=== PATIENT | male | born 1930 | race Caucasian/White ===

== ENCOUNTER 2017-01-21 05:17 | Day surgery (SDC) | payer OTHER ==
[2017-01-14 14:23] LABS: HEMATOCRIT 38.2 % (42.0-52.0); HEMOGLOBIN 12.9 g/dL (14.0-18.0); MCH 28.2 PG (27-31); MCHC 33.8 g/dL (33-37); MCV 83.4 FL (81-99); MPV 9.3 FL (7.4-10.4); RBC 4.58 XMIL (4.7-6.1)
[2017-01-14 14:38] LABS: ALBUMIN 4.5 g/dL (3.5-5.0); CALCIUM 9.6 mg/dL (8.8-10.2); POTASSIUM 4.8 mmol/L (3.5-5.1); TOTAL BILIRUBIN 0.36 mg/dL (0.20-1.00); TOTAL PROTEIN 7.7 g/dL (6.3-8.3)
--- NOTE | 2017-01-14 15:37 | EKG Report ---
Test Performed on : 01/14/2017 2:11:08 PM Test Reason : PAT Blood Pressure : / mmHG Vent. Rate : 083 BPM Atrial Rate : 083 BPM P-R Int : 290 ms QRS Dur : 100 ms QT Int : 392 ms P-R-T Axes : 006 006 003 degrees QTc Int : 460 ms Sinus rhythm. with 1st degree AV block. Voltage criteria for left ventricular hypertrophy Inferior infarct , age undetermined Abnormal ECG No previous ECGs available Confirmed by Ifeoma FERGUSON, Javan Hogan ([id number]) on 01/14/2017 5:24:54 PM
[2017-01-21] MEDS ORDERED: LR 1,000 ML ONE ×3 (05:28→09:32)
[2017-01-21] MEDS ORDERED: KEFZOL 1 GM/D5W 50 ML ONE (05:30)
[2017-01-21] MEDS ORDERED: GLUCAGON ONE (06:43)
[2017-01-21] MEDS ORDERED: MARCAINE 0.25% PF/EPI 1:200,000 ONE (06:43)
[2017-01-21] MEDS ORDERED: SODIUM CHLORIDE 0.9% ONE (06:44)
[2017-01-21] MEDS ORDERED: DIPRIVAN 1% ONE (08:32)
[2017-01-21] MEDS ORDERED: FENTANYL ONE (08:32)
[2017-01-21] MEDS ORDERED: BUPRENEX IV PRN (08:48)
[2017-01-21] MEDS ORDERED: NORCO-7.5 PO PRN (08:48)
[2017-01-21] MEDS ORDERED: ZOFRAN IV PRN (08:48)
[2017-01-21] MEDS ORDERED: PRILOSEC PO SCH (09:00)
[2017-01-21] MEDS ORDERED: DYAZIDE PO SCH (09:00)
[2017-01-21] MEDS ORDERED: CASODEX PO SCH (09:00)
[2017-01-21 09:10] LABS: HEMATOCRIT 36.8 % (42.0-52.0); HEMOGLOBIN 12.3 g/dL (14.0-18.0)
--- NOTE | 2017-01-21 09:22 | Diag Imaging Result Document ---
PROCEDURE NAME: OPERATIVE CHOLANGIOGRAM - 01/21/2017 INTRAOPERATIVE CHOLANGIOGRAM N: COMPARISON: None available. FINDINGS: A single spot fluoroscopic image of the opacified common bile duct was performed intraoperatively by Dr. Bossman Gee. The common bile duct appears to be grossly normal in course and caliber. No discrete stricture or filling defect is identified. There is normal passage of contrast into small bowel. IMPRESSION: As above. Please correlate with live fluoroscopic imaging.
[2017-01-21] MEDS ORDERED: NORCO-7.5 ONE (09:28)
[2017-01-21] MEDS ORDERED: SODIUM CHLORIDE 0.9% 10 ML ONE (09:31)
[2017-01-21] MEDS ORDERED: NEOSTIGMINE ONE (09:31)
[2017-01-21] MEDS ORDERED: ZOFRAN ONE (09:32)
[2017-01-21] MEDS ORDERED: NORCURON ONE (09:32)
[2017-01-21] MEDS ORDERED: QUELICIN (DOSE) ONE (09:32)
[2017-01-21] MEDS ORDERED: EPHEDRINE ONE (09:32)
[2017-01-21] MEDS ORDERED: ROBINUL ONE (09:32)
[2017-01-21] MEDS ORDERED: XYLOCAINE-MPF 2% ONE (09:32)
[2017-01-21] MEDS ORDERED: STERILE WATER INJ. ONE (09:32)
--- NOTE | 2017-01-21 11:05 | OPERATIVE NOTE ---
PROCEDURE DATE: 01/21/2017 PREOPERATIVE DIAGNOSIS: Chronic calculous cholecystitis. POSTOPERATIVE DIAGNOSIS: Chronic calculous cholecystitis. PROCEDURE PERFORMED: Laparoscopic cholecystectomy with operative cholangiogram. SURGEON: Dr. Bossman Gee. SKIDDER DRIVER: Gabriel Gore MD. ANESTHESIA: General. ESTIMATED BLOOD LOSS: 25 mL. COMPLICATIONS: None apparent. SPECIMENS: Gallbladder. FINDINGS: The gallbladder was chronically inflamed with sludge and small stones inside. The cholangiogram revealed normal proximal hepatic ducts and distal common bile duct. There was flow of contrast into the duodenum. No filling defects or stenoses were appreciated. TECHNIQUE: He was brought to the operating room and placed supine on the table. General anesthesia was induced. He was prepped and draped in the usual sterile fashion. Quarter percent Marcaine with epinephrine was used to anesthetize our skin incisions. An 11 mm incision was made above the umbilicus. The fascia was exposed and incised sharply. Entry into the peritoneal cavity was obtained under direct vision with the Optiview device. Pneumoperitoneum was established. The camera was inserted. There was no evidence of any injury to underlying structures. He was placed in reverse Trendelenburg and left rotation. Three 5 mm incision and ports were placed in the epigastric and right upper quadrant under direct vision per usual routine. The gallbladder was grasped by me with an Allis clamp and lifted up superiorly. The dome of the gallbladder tore easily. Some bile, and small sludge and stones spilled. I irrigated these and suctioned these out. I switched to a bulldog clamp to close this rent in the dome of the gallbladder. We then were able to retract the gallbladder up superiorly in a cephalad direction. Dr. Gore was present and helpful in retracting the gallbladder, identifying the critical view, and assisting with the closing of the skin and the fascia at the umbilicus at the end. I began dissecting out the triangle of [place] with the [place] forceps, the blunt tip of the suction device, and using a hook cautery to incise fibroareolar tissue. The critical view was obtained. There were only 2 structures entering the gallbladder, the cystic duct and cystic artery, and the gallbladder-liver junction was seen. The artery was clipped proximally and distally, and incised in between with scissors. The duct was clipped distally. A proximal ductotomy was made with scissors. A 14-gauge Angiocath was passed through the right upper quadrant. The Taut cholangiogram catheter was passed through this, into the cystic duct. It was held in place with a clip. The cholangiogram was performed with the findings as noted above. The clip, catheter, and Angiocath were then removed. Two clips were placed on the proximal cystic duct and it was divided with scissors distal to these two. The gallbladder was then removed from the liver bed using hook cautery as well as scissors and cautery. The upper back wall of the gallbladder was densely adherent to the liver. I did end up leaving a small area of the back wall of the gallbladder. I did not feel it was worth teasing this off of the liver capsule and producing more bleeding. The gallbladder was placed in an EndoCatch bag. I irrigated with saline. There were some bleeding areas on the edge of the gallbladder fossa on the liver. These were controlled with cautery. We irrigated some more until I was satisfied that the bleeding had stopped. I suctioned out the old blood, irrigant, and bile. I did not see any retained stones. I then brought the gallbladder and bag out through the umbilical port site. We desufflated the abdomen and removed our ports. The umbilical fascia was closed with a [id number] 0 Vicryl. The skin was closed with running 4-0 subcuticular Monocryl and Steri-Strips. There were no apparent complications. He was awakened in stable condition and transferred to the recovery room.
[2017-01-21 12:20] LABS: HEMATOCRIT 37.1 % (42.0-52.0); HEMOGLOBIN 12.3 g/dL (14.0-18.0)
[2017-01-21 12:30] VITALS: BP 145/80
== END 2017-01-21 12:49 | disposition home or self-care (01) ==
LOC: OPS 05:17
PROVIDERS: ATTEND Surgery
DX: K80.10 Calculus of gallbladder with chronic cholecystitis without obstruction (principal); Z87.891 Personal history of nicotine dependence; E11.9 Type 2 diabetes mellitus without complications; M19.90 Unspecified osteoarthritis, unspecified site; E78.00 Pure hypercholesterolemia, unspecified; Z85.46 Personal history of malignant neoplasm of prostate
CPT/HCPCS: 74300; 80053; 82948; 85014; 85018; 85027; 88304; 93005; 93010; C1751; J0330; J0690; J1610; J2405; J3010; J7120; Q9966; J2710

== ENCOUNTER 2018-11-26 15:05 | Inpatient (IN) ==
--- NOTE | 2018-11-26 16:22 | Diag Imaging Result Doc PS360 ---
CT HEAD/C-SPINE W/O CONTRAST - 11/26/2018 INDICATION: Fall, syncope COMPARISON: None FINDINGS: There is mild diffuse cerebral atrophy. There is moderate diffuse periventricular white matter chronic microvascular disease. No intracranial mass or hemorrhage. The skull is intact. The sinuses are clear. Cervical spine: There is severe diffuse abnormal sclerosis throughout the cervical spine. This is compatible with metastatic bony disease. There is advanced multilevel degenerative disc disease with bridging osteophytes. No fracture or subluxation. No significant central canal stenosis. IMPRESSION: No acute injury. This exam was performed using automated exposure control, adjustment of mA or kV according to patient size, and/or use of iterative reconstruction technique Electronically signed by Real Rm 11/26/2018 4:19 PM
[2018-11-26 17:26] LABS: BASO# 0.01 X1000 (0.0-0.2); BASO% 0.1 % (0.0-0.8); EOS# 0.03 X1000 (0.0-0.7); EOS% 0.3 % (0.0-10.0); HEMOGLOBIN 10.4 g/dL (14.0-18.0); IMM GRAN# 0.04 X1000 (0.0-0.04); IMM GRAN% 0.3 % (0.0-0.5); LYMPH# 1.13 X1000 (1.2-3.4); LYMPH% 9.5 % (20.5-51.1); MCHC 30.6 g/dL (33-37); MCV 75.2 FL (81-99); MONO# 1.06 X1000 (0.11-0.59); MONO% 8.9 % (1.7-9.3); MPV 8.9 FL (7.4-10.4); NEUT# 9.58 X1000 (1.4-6.5); NEUT% 80.9 % (42.2-75.2); PLT 450 X1000 (130-400); RBC 4.52 XMIL (4.7-6.1); RDW 15.8 % (11.5-14.5); WBC 11.85 X1000 (4.8-10.8)
[2018-11-26 17:47] LABS: AGAP 12; ALB/GLOB RATIO 1.2; ALBUMIN 3.8 g/dL (3.5-5.0); ALKALINE PHOSPHATASE 107 U/L (32-122); BUN 17 mg/dL (8-22); CALCIUM 8.3 mg/dL (8.8-10.2); CHLORIDE 94 mmol/L (98-107); COSMO 267; ESTIMATED GFR > 60; GLUCOSE 149 mg/dL (70-104); GOT 14 U/L (10-34); GPT 6 U/L (10-44); POTASSIUM 4.1 mmol/L (3.5-5.1); SODIUM 131 mmol/L (136-145); TCO2 25 mmol/L (25-35); TOTAL BILIRUBIN 0.36 mg/dL (0.20-1.00)
[2018-11-26] MEDS ORDERED: NS 1,000 ML IV ONE (18:20)
[2018-11-26 20:54] LABS: URINE SOURCE CLEAN CATCH
[2018-11-26 21:03] LABS: BILIRUBIN URINE NEGATIVE (NEGATIVE); BLOOD URINE NEGATIVE (NEGATIVE); CLARITY CLEAR (CLEAR); COLOR YELLOW; GLUCOSE URINE NEGATIVE (NEGATIVE); KETONE URINE NEGATIVE (NEGATIVE); LEUKOCYTES URINE NEGATIVE (NEGATIVE); NITRITE URINE NEGATIVE (NEGATIVE); PH URINE 6.5; PROTEIN URINE TRACE mg/dL (NEGATIVE); UROBILINOGEN URINE 0.2 EU/dL (0.2-1.0)
[2018-11-26 21:04] LABS: URINE BACTERIA NEGATIVE /HFP; URINE CAST NONE SEEN /LPF; URINE CRYSTAL NONE SEEN /HPF; URINE EPITHELIAL CELLS <10 /HPF (<10); URINE RBC <10 /HPF (<10); URINE WBC <10 /HPF (<10); URINE YEAST NONE SEEN /HPF
[2018-11-26] MEDS ORDERED: TYLENOL PO PRN (21:44)
--- NOTE | 2018-11-26 23:07 | PROVIDER DOCUMENTATION ---
This chart was entered by Juanita Cuba Scribe, acting as scribe for Emmy Shaw MD. HPI-Head Injury - General Chief Complaint: Fall Stated Complaint: FALL-HIT HEAD Time Seen by Provider: 11/26/18 15:10 Source: patient, family (daughter) Allergies/Adverse Reactions: Patient Allergies Allergy/AdvReac Type Severity Reaction Status Date / Time No Known Allergies Allergy Verified 01/14/17 13:53 Home Medications: Home Medication List Medication Instructions Recorded Confirmed Last Taken Type Bicalutamide 50 mg PO DAILY 01/14/17 01/21/17 01/21/17 03:00 History Metformin [Glucophage] 500 mg PO BID CC 01/14/17 01/21/17 01/20/17 16:00 History Triamterene/Hydrochlorothiazid 1 each PO DAILY 01/14/17 01/21/17 01/20/17 09:00 History [Triamterene-Hctz 37.5-25 mg Cp] Aspirin 81 mg PO DAILY #0 01/21/17 01/21/17 01/14/17 09:00 Rx Hydrocodone/Acetaminophen [[place] 1 each PO Q4H PRN #25 tablet 01/21/17 Unknown Rx 7.5-325 Tablet] Naproxen 500 mg PO BID #0 01/21/17 01/21/17 01/14/17 16:00 Rx Omeprazole 20 mg PO DAILY #0 01/21/17 01/21/17 01/20/17 09:00 Rx - History of Present Illness-Head Injury Nature of Presenting Problem: [id number] presents to the ed via pov with daughter. pt sts was at home on the phone became dizzy and fell hitting his head on left temporal region with abrasion noted. pt sts +loc and witnessed the fall. SAID HE LOST CONSCIOUSNESS FOR 5 MINUTES, NO SHAKING OR LOSS OF URINE, NO CONFUSION AFTERWARD. pt denies any pain at this time and sts he feels good but his home health nurse wanted him to come be checked out. pt sts takes 81mg asa daily and no anticoagulants Head Injury Location: reports: temporal (left) Other injuries associated with incident:: reports: none Quality of Pain: reports: none Severity: reports: mild Onset/Duration: reports: just prior to arrival Timing: reports: improving Method of Injury: reports: fell Any recent trauma/injury?: reports: minor, to head Loss of Consciousness: prolonged (minutes) (5 minutes) Modifying Factors: improves with: nothing Injury Associated Symptoms: reports: denies symptoms Locality of [place]urance: Home Similar Symptoms Previously?: No Recently seen or treated by another doctor?: No Review of Systems - Adult - REVIEW OF SYSTEMS - ADULT Constitutional: denies: chills, fever Eyes: reports: no symptoms reported Ears, Nose, Mouth & Throat: reports: no symptoms reported Cardiovascular: denies: chest pain, palpitations Respiratory: denies: cough, shortness of breath, wheezing Gastrointestinal: denies: abdominal pain, diarrhea, nausea, vomiting Genitourinary: reports: no symptoms reported Musculoskeletal: denies: back pain, neck pain Integumentary: reports: no symptoms reported Neurological: reports: see HPI, dizziness/vertigo, loss of balance, syncope. denies: ataxia, headache/migraines, numbness, paresthesia, seizure, slurred speech, tremors Psychiatric: reports: no symptoms reported Endocrine: reports: no symptoms reported Hematologic/Lymphatic: reports: no symptoms reported Allergic/Immunologic: reports: no symptoms reported All Other Systems: Reviewed and Negative Past History - Adult - PAST MEDICAL HISTORY-ADULT Review of Records: reports: Old Records Reviewed, Nursing Assessment Review, Medications Reviewed, Social history reviewed & non-contributory. 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) Musculoskeletal: reports: denies history Neurological: reports: denies history Endocrine/Immune: reports: denies history Other Conditions: reports: denies history - PRIOR SURGERIES/PROCEDURES Surgical/Procedure History: reports: reviewed, not pertinent - IMMUNIZATION STATUS Childhood Immunizations: See Nurse Assessment Flu Vaccine: See Nurse Assessment - FAMILY HISTORY Family History: reviewed, not pertinent - SOCIAL HISTORY Smoking: denies Substance Use: denies Living Situation: family Physical Exam- Neurological - Physical Exam-Neuro Initial Vital Signs Reviewed: Yes General Appearance: appears well, alert, no apparent distress Eye Exam: bilateral eye: normal inspection, PERRL, EOMI HENMT: normocephalic/atraumatic, moist mucous membranes, TMs normal, pharynx normal, other (no teeth) Head Injury: ecchymosis (with abrasion to left temporal area) Neck: full range of motion, normal inspection Respiratory: chest non-tender, lungs clear, normal breath sounds Cardiovascular: normal peripheral pulses, regular rate, rhythm, systolic murmur Abdominal Exam: normal bowel sounds, non tender, soft Lymphatic: no adenopathy Extremity: normal range of motion, non-tender, no calf tenderness, normal capillary refill, pelvis stable apprentice lineman third step Exam: normal hearing, normal speech, PERRL Motor/Sensory: no motor deficit, no sensory deficit, no pronator drift Neurologic: grossly normal, no motor/sensory deficits Integumentary: normal color, normal turgor, warm/dry, ecchymosis (to left temporal area of head) Psych/Mental Status: normal mood/affect, normal thought content, normal thought process, oriented x 3 - Glascow Coma Scale Best Eye Response: (4) open spontaneously Best Verbal Response: (5) oriented Best Motor Response: (6) obeys commands Total Glascow Score: 15 Progress - PLAN OF CARE/RESULTS Progress/Plan/Lab Results: Vital Signs - 8 hr 11/26/18 15:10 11/26/18 15:24 11/26/18 15:30 Temperature 97.0 F L Pulse Rate 97 H 83 82 Pulse Rate [Sitting] Pulse Rate [Standing] Pulse Rate [Supine] Respiratory Rate 20 19 19 Blood Pressure 115/58 130/73 Blood Pressure [Sitting] Blood Pressure [Standing] Blood Pressure [Supine] O2 Sat by Pulse Oximetry 95 97 97 11/26/18 15:40 11/26/18 16:14 11/26/18 16:20 Temperature Pulse Rate 80 83 84 Pulse Rate [Sitting] Pulse Rate [Standing] Pulse Rate [Supine] Respiratory Rate 16 32 H 27 H Blood Pressure Blood Pressure [Sitting] Blood Pressure [Standing] Blood Pressure [Supine] O2 Sat by Pulse Oximetry 97 92 L 97 11/26/18 16:30 11/26/18 16:40 11/26/18 17:00 Temperature Pulse Rate 87 82 86 Pulse Rate [Sitting] Pulse Rate [Standing] Pulse Rate [Supine] Respiratory Rate 22 23 18 Blood Pressure Blood Pressure [Sitting] Blood Pressure [Standing] Blood Pressure [Supine] O2 Sat by Pulse Oximetry 97 97 98 11/26/18 17:10 11/26/18 17:20 11/26/18 17:30 Temperature Pulse Rate 89 86 87 Pulse Rate [Sitting] Pulse Rate [Standing] Pulse Rate [Supine] Respiratory Rate 19 15 17 Blood Pressure Blood Pressure [Sitting] Blood Pressure [Standing] Blood Pressure [Supine] O2 Sat by Pulse Oximetry 97 97 97 11/26/18 17:40 11/26/18 17:50 11/26/18 18:00 Temperature Pulse Rate 87 81 88 Pulse Rate [Sitting] Pulse Rate [Standing] Pulse Rate [Supine] Respiratory Rate 20 17 17 Blood Pressure Blood Pressure [Sitting] Blood Pressure [Standing] Blood Pressure [Supine] O2 Sat by Pulse Oximetry 98 97 98 11/26/18 18:10 11/26/18 18:12 11/26/18 18:14 Temperature Pulse Rate 87 88 93 H Pulse Rate [Sitting] 90 Pulse Rate [Standing] 91 H Pulse Rate [Supine] 86 Respiratory Rate 19 19 24 Blood Pressure 159/85 127/75 106/51 Blood Pressure [Sitting] 127/75 Blood Pressure [Standing] 106/51 Blood Pressure [Supine] 159/85 O2 Sat by Pulse Oximetry 96 93 L 97 11/26/18 18:20 11/26/18 18:30 11/26/18 18:40 Temperature Pulse Rate 83 84 90 Pulse Rate [Sitting] Pulse Rate [Standing] Pulse Rate [Supine] Respiratory Rate 16 23 15 Blood Pressure Blood Pressure [Sitting] Blood Pressure [Standing] Blood Pressure [Supine] O2 Sat by Pulse Oximetry 99 98 98 11/26/18 18:50 11/26/18 19:00 11/26/18 19:03 Temperature Pulse Rate 83 84 85 Pulse Rate [Sitting] Pulse Rate [Standing] Pulse Rate [Supine] Respiratory Rate 16 14 14 Blood Pressure 166/85 Blood Pressure [Sitting] Blood Pressure [Standing] Blood Pressure [Supine] O2 Sat by Pulse Oximetry 97 99 97 11/26/18 19:10 11/26/18 19:20 11/26/18 19:30 Temperature Pulse Rate 87 89 85 Pulse Rate [Sitting] Pulse Rate [Standing] Pulse Rate [Supine] Respiratory Rate 15 15 15 Blood Pressure Blood Pressure [Sitting] Blood Pressure [Standing] Blood Pressure [Supine] O2 Sat by Pulse Oximetry 98 98 98 11/26/18 19:40 11/26/18 20:03 11/26/18 20:20 Temperature Pulse Rate 92 H 72 89 Pulse Rate [Sitting] Pulse Rate [Standing] Pulse Rate [Supine] Respiratory Rate 20 18 13 Blood Pressure 154/63 Blood Pressure [Sitting] Blood Pressure [Standing] Blood Pressure [Supine] O2 Sat by Pulse Oximetry 99 97 97 11/26/18 20:30 Temperature Pulse Rate 77 Pulse Rate [Sitting] Pulse Rate [Standing] Pulse Rate [Supine] Respiratory Rate 20 Blood Pressure Blood Pressure [Sitting] Blood Pressure [Standing] Blood Pressure [Supine] O2 Sat by Pulse Oximetry 96 Laboratory Results - last 24 hr 11/26/18 11/26/18 11/26/18 16:55 16:55 19:51 WBC 11.85 H RBC 4.52 L Hgb 10.4 L Hct 34.0 L MCV 75.2 L MCH 23.0 L MCHC 30.6 L RDW Std Deviation 15.8 H Plt Count 450 H MPV 8.9 Immature Gran % (Auto) 0.3 Neut % (Auto) 80.9 H Lymph % (Auto) 9.5 L [place] % (Auto) 8.9 Eos % (Auto) 0.3 Baso % (Auto) 0.1 Immature Gran # (Auto) 0.04 Neut # (Auto) 9.58 H Lymph # (Auto) 1.13 L [place] # (Auto) 1.06 H Eos # (Auto) 0.03 Baso # (Auto) 0.01 Sodium 131 L Potassium 4.1 Chloride 94 L Carbon Dioxide 25 Anion Gap 12 BUN 17 Creatinine 1.0 Estimated GFR/1.73 m2 > 60 BUN/Creatinine Ratio 17 Glucose 149 H Calculated Osmolality 267 Calcium 8.3 L Total Bilirubin 0.36 AST 14 ALT 6 L Alkaline Phosphatase 107 Creatine Kinase Troponin T Total Protein 7.0 Albumin 3.8 Globulin 3.2 Albumin/Globulin Ratio 1.2 Urine Source CLEAN CATCH Urine Color YELLOW Urine Clarity CLEAR Urine Turbidity Urine pH 6.5 Ur Specific [place] 1.010 Urine Protein TRACE A Ur Glucose (Stick) Urine Ketones NEGATIVE Ur Ketones (Stick) Urine Blood NEGATIVE Urine Nitrite NEGATIVE Urine Bilirubin NEGATIVE Urine Urobilinogen 0.2 Urobilinogen Dipstick Urine Leukocytes Urine WBC (Auto) Urine RBC (Auto) U Epithel Cells (Auto) Urine Bacteria (Auto) Urine Microscopic RBC <10 Urine WBC NEGATIVE Urine Microscopic WBC <10 Ur Epithelial Cells <10 Urine Crystals NONE SEEN Urine Bacteria NEGATIVE Urine Casts NONE SEEN Urine Yeast NONE SEEN Urine Glucose NEGATIVE 11/26/18 11/26/18 11/26/18 19:57 21:26 21:26 WBC RBC Hgb Hct MCV MCH MCHC RDW Std Deviation Plt Count MPV Immature Gran % (Auto) Neut % (Auto) Lymph % (Auto) [place] % (Auto) Eos % (Auto) Baso % (Auto) Immature Gran # (Auto) Neut # (Auto) Lymph # (Auto) [place] # (Auto) Eos # (Auto) Baso # (Auto) Sodium Potassium Chloride Carbon Dioxide Anion Gap BUN Creatinine Estimated GFR/1.73 m2 BUN/Creatinine Ratio Glucose Calculated Osmolality Calcium Total Bilirubin AST ALT Alkaline Phosphatase Creatine Kinase 177 Troponin T 0.022 Total Protein Albumin Globulin Albumin/Globulin Ratio Urine Source Cancelled Urine Color Cancelled Urine Clarity Urine Turbidity Cancelled Urine pH Cancelled Ur Specific [place] Cancelled Urine Protein Cancelled Ur Glucose (Stick) Cancelled Urine Ketones Ur Ketones (Stick) Cancelled Urine Blood Cancelled Urine Nitrite Cancelled Urine Bilirubin Cancelled Urine Urobilinogen Urobilinogen Dipstick Cancelled Urine Leukocytes Cancelled Urine WBC (Auto) Cancelled Urine RBC (Auto) Cancelled U Epithel Cells (Auto) Cancelled Urine Bacteria (Auto) Cancelled Urine Microscopic RBC Urine WBC Urine Microscopic WBC Ur Epithelial Cells Urine Crystals Urine Bacteria Urine Casts Urine Yeast Urine Glucose Orders Category Date Time Status Admit - [facility] Routine AdmDCTranf 11/26/18 21:44 Active Activity - Strict Bedrest ORDERED Care 11/26/18 21:44 Active Apply Mechanical Device [QM] ORDERED Care 11/26/18 21:44 Active ED: Orthostatic Vital Signs (E as directed Care 11/26/18 15:49 Completed IV Insertion ONCE Care 11/26/18 21:44 Active Intake and Output-Strict ORDERED Care 11/26/18 21:44 Active Notify MD if DIRECTED Care 11/26/18 21:44 Active Nursing- Assist w/ IS as order ORDERED Care 11/26/18 21:44 Active Nursing- Obtain EKG once Care 11/26/18 18:00 Completed Nursing- Obtain EKG once Care 11/26/18 18:01 Inactive Orthostatic Vital Signs Q12-HR ASSESS Care 11/26/18 21:44 Active Vital Signs Order ROUTINE Care 11/26/18 21:44 Active Z-Document. for Tele Applied ORDERED Care 11/26/18 21:44 Active Heart Healthy Diet Diet 11/26/18 21:[address] HEAD/C-SPINE W/O CONTRAST [CT] Stat Exams 11/26/18 15:34 Completed CBC WITH DIFF [HEME] Routine Lab 11/27/18 06:00 Ordered CBC WITH ELECTRONIC DIFF [HEME] Stat Lab 11/26/18 16:55 Completed CK PROFILE [SP CHEM] Q8HR Lab 11/26/18 21:26 Completed CK PROFILE [SP CHEM] Q8HR Lab 11/27/18 05:00 Ordered COMPREHENSIVE METABOLIC PANEL [CHEM] Routine Lab 11/27/18 06:00 Ordered COMPREHENSIVE METABOLIC PANEL [CHEM] Stat Lab 11/26/18 16:55 Completed CORTISOL Routine Lab 11/27/18 06:00 Ordered FERRITIN Routine Lab 11/27/18 06:00 Ordered FOLATE Routine Lab 11/27/18 06:00 Ordered FREE T4 Routine Lab 11/27/18 06:00 Ordered Stool [OCCULT BLOOD SCREENING] [STOOL] Routine Lab 11/26/18 21:44 Uncollected Stool [OCCULT BLOOD SCREENING] [STOOL] Stat Lab 11/26/18 21:44 Uncollected TROPONIN T Q8HR Lab 11/26/18 21:26 Completed TROPONIN T Q8HR Lab 11/27/18 05:00 Ordered TSH Routine Lab 11/27/18 06:00 Ordered UIBC W TOTAL IRON [CHEM] Routine Lab 11/27/18 06:00 Ordered VITAMIN B12 Routine Lab 11/27/18 06:00 Ordered 0.9% Sodium Chloride Inj [Ns] 1,000 ml Med 11/26/18 21:44 Active IV 70 mls/hr 0.9% Sodium Chloride Inj [Ns] 1,000 ml Med 11/26/18 18:20 Discontinued IV 999 mls/hr Acetaminophen [Tylenol] Med 11/26/18 21:44 Active 650 mg PO Q4H PRN PRN Incentive Spirometer Routine Oth 11/26/18 21:44 Active O2 Per Protocol Routine Oth 11/26/18 21:44 Active Telemetry [OM.EQ] Routine Oth 11/26/18 21:44 Active Carotid Ultrasound Routine Ther 11/27/18 07:00 Ordered EKG [EKG] Stat Ther 11/26/18 15:35 Ordered Echo Spec/Color Dop W/O Contra Routine Ther 11/26/18 21:44 Ordered Physical Therapy Eval/Treatment [OM.PT] Routine Ther 11/26/18 21:44 Active Transfer/Admit Order [TRANSFER] Routine Transfer 11/26/18 20:33 Completed Patient care, assessment and plan discussed with the attending physician Dr. Hang Garner and he agree with the plan as documented. Result Diagrams: 11/26/18 16:55 11/26/18 16:55 - REASSESSMENT Reassessment #1 Time Reassessed: 16:41 Status: unchanged - CT/MRI 1 CT Study: Cervical Spine (CT HEAD/C-SPINE W/O CONTRAST - 11/26/2018 INDICATION : Fall, syncope COMPARISON: None FINDINGS: There is mild diffuse cerebral atrophy. There is moderate diffuse periventricular white matter chronic microvascular disease. No intracranial mass or hemorrhage. The skull is intact. The sinuses are clear. Cervical spine: There is severe diffuse abnormal sclerosis throughout the cervical spine. This is compatible with metastatic bony disease. There is advanced multilevel degenerative disc disease with bridging osteophytes. No fracture or subluxation. No significant central canal stenosis. IMPRESSION: No acute injury. This exam was performed using automated exposure control, adjustment of mA or kV according to patient size, and/or use of iterative reconstruction technique Electronically signed by Real Rm 11/26/2018 4:19 PM 11/26/18 1619 Interpreting Physician: Real Rm MD Dictated Date/Time: 11/26/18 1615 cc: Emmy Remy MD; Agus Gonzales MD), Head - CONSULTS/PCP/HOSPITALIST Notification #1 *Consult/PCP/Hospitalist*: Dr. Fermin Time Discussed: 18:51 Consult Disposition: Admit (Accepted.) Departure - Departure Date of Disposition Decision: 11/26/18 Time of Disposition Decision: 18:51 DIAGNOSIS: Syncope Qualifiers: Syncope type: unspecified Qualified Code(s): R55 - Syncope and collapse Anemia Qualifiers: Anemia type: unspecified type Qualified Code(s): D64.9 - Anemia, unspecified Disposition: ADMITTED INPATIENT 09 Certified Medical Emergency: Emergent Condition: Stable - Critical Care Note This patient required my direct & personal management of CC.: No Attestation - Physician/ LAZARA Attestation Patient care was provided by Advanced Practice Provider:: No The physician spent face to face time with patient:: Yes Advanced Practice Provider documentation review:: Supervising physician onsite and consulted in the evaluation and care of this patient. The physician did have a face to face encounter with the patient. This chart was documented by the indicated scribe, (Juanita Cuba Scribe) and accurately reflects the services I performed and decisions made by me, Emmy Shaw MD, as attested by the provider's signature.
[2018-11-27] MEDS: NS 1,000 ML IV SCH ×2 (00:22→14:34)
--- NOTE | 2018-11-27 02:34 | HISTORY AND PHYSICAL ---
PRIMARY CARE PHYSICIAN: Dr. Agus Gonzales. CHIEF COMPLAINT: Syncopal episode. HISTORY OF PRESENT ILLNESS: An 88-year-old white male, with a past medical history significant for metastatic prostate cancer, reflux disease, diabetes, and hyperlipidemia, who presents for evaluation of above-mentioned symptoms. Current history of present illness began approximately 1 to 2 weeks ago. At that time, the patient was noted to have increasing weakness and difficulty with ambulation. The patient's family contacted Dr. Gonzales, and home health was arranged. The patient states he has worked with home health and physical therapy. Approximately 3 to 4 days ago, he developed a significant left upper extremity pain. He noted this pain to be primarily in the left upper arm, as well as the left shoulder. The patient did note having intermittent chest discomfort. The patient states the symptoms lasted approximately 48 hours, resolving last night. This morning, the patient states he awoke feeling dizzy, but reasonably well. The patient states he was carrying on his daily activities, when he received a phone call from the nurse at approximately 1:00. Thereafter, the patient is unsure as to the following events. The patient states that he awoke, having fallen on the ground. He noted pain to his left scalp, as he had struck his head on the floor. The patient's heard him fall, and called for assistance immediately. Neighbors helped him. He was weak, but they helped him to a sitting position. The patient's nurse arrived and assessed his condition. Because of the laceration to his scalp, as well as his profound weakness, further evaluation in the emergency department was recommended. Upon arrival, full evaluation was pursued. CT scan of the head and cervical spine revealed no acute abnormalities. Orthostatic blood pressures demonstrated a significant orthostasis. The patient will be admitted to the hospital for full evaluation and management of syncopal episode, with associated orthostatic hypotension and chest discomfort. Of note, the patient recently has developed increasing shortness of breath and dyspnea on exertion. He denies significant palpitations, lower extremity edema, fevers, chills, nausea, vomiting, or chest discomfort. He notes intermittent reflux disease, transient. PAST MEDICAL HISTORY: 1. Metastatic prostate cancer, with bony involvement. 2. Hyperlipidemia. 3. Osteoarthritis. 4. Reflux disease. 5. Diabetes. CURRENT MEDICATIONS: Unknown. ALLERGIES: The patient answered no known drug allergies. SOCIAL HISTORY: The patient is a retired TV repairman. Denies tobacco, alcohol, or illicit drug use. FAMILY HISTORY: Patient's mother passed at age 68, secondary to complications of breast cancer. Patient's father passed at age 64, secondary to complications of lung cancer. REVIEW OF SYSTEMS: A 12-point review of systems was performed. Pertinent positives and negatives are noted in the history of present illness. PHYSICAL EXAMINATION: VITAL SIGNS: Temperature 97 degrees, heart rate 77, respirations 20, blood pressure is 154/63. GENERAL: Well-nourished, well-developed, in no acute distress. HEENT: Normocephalic, atraumatic. Pupils equal, round, reactive to light. Extraocular muscles intact. Sclerae anicteric. [place] conjunctivae. Oral and nasopharynx clear, without exudate. NECK: Supple. No lymphadenopathy. No thyromegaly. No bruits auscultated. CARDIOVASCULAR: Regular rate and rhythm. No significant rubs or gallops. A 3/6 systolic murmur noted at the apex. PULMONARY: Clear to auscultation bilaterally. ABDOMEN: Soft, nontender, nondistended. Positive bowel sounds. EXTREMITIES: Moves all extremities well. No significant clubbing, cyanosis, or edema. NEUROLOGIC: Cranial nerves 2-12 grossly intact. Motor and sensory grossly intact. PSYCHOLOGIC: Appropriate. LABORATORY DATA: White blood cell count 11.85, hemoglobin 10.4, hematocrit 34.0, platelet count 450,000. Sodium 131, potassium 4.1, chloride 94, bicarb 25, BUN 17, creatinine 1.0, glucose 149. Calcium 8.3. Total bilirubin 0.36, total protein 7.0, albumin 3.8, alkaline phosphatase 107, AST 14, ALT 6. Urinalysis is pending at the time of admission. ASSESSMENT AND PLAN: An 88-year-old white male, with a complicated past medical history as noted, who presents for evaluation of a syncopal episode. As described above, the patient was noted to be significantly orthostatic upon admission. He also has noted intermittent chest discomfort with dyspnea on exertion and profound weakness in the recent weeks. The patient will be admitted to the hospital for full evaluation and management of each of these conditions. 1. Admit to General Medicine. 2. Syncopal episode - Differential diagnosis is quite broad. We will follow patient on telemetry. We will evaluate chest discomfort as described below. We will treat patient's orthostatic hypotension as described below. We will schedule a carotid Doppler and echocardiogram in the morning. We will check a random cortisol in the setting of hyponatremia. We will determine if a cosyntropin stimulation test is appropriate. Depending on findings, we will initiate physical therapy secondary to weakness in the a.m. 3. Orthostatic hypotension - Documented per evaluation in the emergency department. Patient received 1 L of normal saline. We will continue normal saline at 70 mL an hour. We will follow this as well. 4. Chest discomfort - This is atypical, but in the setting of multiple risk factors and a syncopal episode, underlying ischemia will need to be ruled out. We will check serial cardiac enzymes. We will follow patient on telemetry. Further evaluation will be deferred to Dr. Gonzales. 5. Anemia - The patient has a moderate anemia, with a low MCV. Certainly, an iron deficiency could be contributing to his weakness. We will check an anemia panel in the morning. We will Hemoccult all stools. 6. Profound weakness - As described above, this is increased over the course of the last several weeks. Certainly, this may be secondary to multiple medical conditions and his advanced age, but underlying etiologies will need to be evaluated as described. Additionally, we will initiate physical therapy once his clinical condition has stabilized. 7. Hyponatremia - This likely is multifactorial. We will remain aware. At this point, I am unsure as to his home medications, as these may be playing a role as well. 8. Leukocytosis - I do not have a source of infection at present time. We will follow up urinalysis, as this is pending. We will follow this. 9. Metastatic prostate cancer - We will remain aware. 10. Fluids, electrolytes, nutrition - We will monitor electrolytes. Normal saline at 70 mL an hour. Cardiac prudent diet. 11. Prophylaxis. Patient will be placed on SCDs. cc: MD Agus Benitez MD
[2018-11-27 07:47] LABS: HEMOGLOBIN 10.4 g/dL (14.0-18.0); RDW 15.8 % (11.5-14.5)
[2018-11-27 07:54] LABS: BASO# 0.01 X1000 (0.0-0.2); BASO% 0.1 % (0.0-0.8); EOS# 0.05 X1000 (0.0-0.7); EOS% 0.5 % (0.0-10.0); HEMATOCRIT 34.3 % (42.0-52.0); IMM GRAN# 0.05 X1000 (0.0-0.04); IMM GRAN% 0.5 % (0.0-0.5); LYMPH# 1.03 X1000 (1.2-3.4); LYMPH% 9.8 % (20.5-51.1); MCHC 30.3 g/dL (33-37); MCV 75.9 FL (81-99); MONO# 1.07 X1000 (0.11-0.59); MONO% 10.2 % (1.7-9.3); MPV 8.7 FL (7.4-10.4); NEUT# 8.31 X1000 (1.4-6.5); NEUT% 78.9 % (42.2-75.2); PLT 415 X1000 (130-400); RBC 4.52 XMIL (4.7-6.1); WBC 10.52 X1000 (4.8-10.8)
--- NOTE | 2018-11-27 07:56 | EKG Report ---
Test Performed on : 11/26/2018 6:00:59 PM Test Reason : CP Blood Pressure : / mmHG Vent. Rate : 084 BPM Atrial Rate : 084 BPM P-R Int : 272 ms QRS Dur : 098 ms QT Int : 394 ms P-R-T Axes : 052 011 041 degrees QTc Int : 465 ms Sinus rhythm. with 1st degree AV block. Otherwise normal ECG When compared with ECG of 14-JAN-2017 14:11, Criteria for Inferior infarct are no longer present T wave inversion no longer evident in Inferior leads Nonspecific T wave abnormality now evident in Lateral leads Unconfirmed Result
[2018-11-27 08:01] LABS: AGAP 12; ALB/GLOB RATIO 1.1; ALBUMIN 3.4 g/dL (3.5-5.0); ALKALINE PHOSPHATASE 103 U/L (32-122); BUN 15 mg/dL (8-22); CALCIUM 8.1 mg/dL (8.8-10.2); CHLORIDE 100 mmol/L (98-107); COSMO 275; CREATININE 0.9 mg/dL (0.7-1.2); ESTIMATED GFR > 60; GLUCOSE 141 mg/dL (70-104); GOT 16 U/L (10-34); GPT 6 U/L (10-44); IRON SATURATION 7 %; POTASSIUM 4.1 mmol/L (3.5-5.1); SODIUM 136 mmol/L (136-145); TCO2 24 mmol/L (25-35); TIBC 198 ug/dL; TOTAL IRON 14 ug/dL (53-167); TOTAL PROTEIN 6.6 g/dL (6.3-8.3); UNBOUND IRON 184 ug/dL (112-346)
[2018-11-27 08:21] LABS: FREE T4 1.09 ng/dL (0.93-1.70); TSH 1.88 uIUmL (0.27-4.20)
[2018-11-27] MEDS ORDERED: NORCO-5 PO PRN (08:23)
[2018-11-27] MEDS: MIRALAX PO SCH (09:56)
[2018-11-27] MEDS: ZOLOFT PO SCH (09:56)
--- NOTE | 2018-11-27 14:54 | ECHO REPORT ---
ORDER DATE: 11/26/2018 ECHOCARDIOGRAPHIC MEASUREMENTS: 1. Interventricular septum 1.3. 2. Left ventricular posterior wall 1.4. 3. Diastolic diameter 3.7. 4. Left atrium 4.6. 5. Aorta 3.5 mitral valve leaflets are normal. The aortic valve leaflets were trileaflet, calcified. 6. Tricuspid valve was normal. 7. Pulmonic valve was normal. 8. There is mild tricuspid regurgitation. Peak velocity across the tricuspid valve was 2.6 m/sec. 9. There is trace to mild mitral regurgitation. 10. There is diastolic dysfunction. 11. Peak flows to get across the aortic valve less than 2 m/sec. There is no aortic stenosis. There is aortic sclerosis. There is no aortic regurgitation. 12. Normal left ventricular cavity size. Concentric left ventricular hypertrophy. Estimated ejection fraction of 60% to 65%. 13. There is no pericardial effusion or obvious intracardiac mass or thrombus seen. cc: MD Narayan Mendoza MD Russell T. Barr, MD
[2018-11-28] MEDS: NS 1,000 ML IV SCH ×2 (04:00→18:28)
[2018-11-28] MEDS: PRILOSEC PO SCH (06:19)
[2018-11-28] MEDS: MIRALAX PO SCH (08:32)
[2018-11-28] MEDS: ZOLOFT PO SCH (08:33)
--- NOTE | 2018-11-28 13:24 | PROGRESS NOTE ---
DATE: 11/28/2018 SUBJECTIVE: The patient was admitted on 11/26/2018 with a syncopal episode. Evaluation thus far has included CT scan of the head and cervical spine which revealed no evidence of acute injury. Echocardiogram suggested concentric left ventricular hypertrophy with an ejection fraction of 60% to 65%, diastolic dysfunction, and mild valvular heart disease. Telemetry has demonstrated no evidence of arrhythmia. Since hospitalization, the patient has done reasonably well. He has had no further episodes of syncope. Unfortunately, he continues to have significant weakness. Because of his metastatic prostate cancer and his progressive disease, consideration for Hospice evaluation was made yesterday. A consult was made; however, it does not appear this has been completed. This morning, the patient is in bed. The patient's daughter is at bedside. He remained very concerned in regards to his weakness. He has worked with physical therapy but is unable to ambulate without assistance. He denies, fevers, chills, nausea, vomiting, shortness of breath, or chest discomfort. His p.o. intake is marginal. OBJECTIVE: T-max 99.3, heart rate 77 to 104, respirations 16 to 20, blood pressure 134 to 158 over 53 to 79. General: Elderly. No acute distress. Cardiovascular: Regular rate and rhythm. No significant murmurs, rubs or gallops. Pulmonary: Clear to auscultation bilaterally. Abdomen: Soft. Nontender and nondistended. Positive bowel sounds. Extremities: Moves all extremities well. No significant cyanosis, clubbing or edema. Dermatologic: No evidence of rash. DIAGNOSTIC DATA: No laboratory data. ASSESSMENT AND PLAN: 1. Syncopal episode. Differential diagnosis remains quite broad. Echocardiogram demonstrated no evidence of significant abnormalities. CT scan of the head and cervical spine suggested no evidence of acute disease. Telemetry, thus far, has revealed no arrhythmia. At this point, this appears to be orthostatic hypotension related. He continues to have modest orthostasis despite IV fluids. We will continue supportive care for now. 2. Orthostatic hypotension. As above. We will continue IV fluids. The degree has decreased, however, not resolved. We will remain aware. 3. Chest discomfort. The patient has multiple risk factors. He currently is chest pain free. Cardiac enzymes returned negative. This appears to have been orthopedic in etiology secondary to shoulder and cervical spine disease. 4. Anemia. The patient has a stable, moderate anemia with low MCV. Iron studies reveal a deficiency. At this point, in the setting of him not having a bowel movement since hospitalization, we will hold off on iron replacement. We will consider initiating this prior to discharge. 5. Profound weakness. We discussed this in detail. As above, the patient's daughter is at bedside. We discussed the potential for Hospice care. The patient and the patient's daughter wish to attempt rehabilitation and physical therapy. If he is unable to succeed, they would like to consider Hospice at that time. For now, we will continue physical therapy while hospitalized and consider rehabilitation early next week. 6. Hyponatremia. The patient's sodium level has improved since admission. We will continue IV fluids. 7. Metastatic prostate cancer. We will remain aware. 8. Disposition. At this point, the patient continues to require custodial care in a hospital setting. We will plan discharge to rehabilitation versus Hospice once appropriate. cc: MD Agus Benitez MD
[2018-11-29] MEDS: PRILOSEC PO SCH (06:29)
[2018-11-29] MEDS: ZOLOFT PO SCH (08:08)
[2018-11-29] MEDS: MIRALAX PO SCH (08:09)
[2018-11-29] MEDS: NS 1,000 ML IV SCH (08:11)
--- NOTE | 2018-11-29 12:18 | PROGRESS NOTE ---
DATE: 11/29/2018 SUBJECTIVE: As described in note yesterday, a discussion was held with patient and with the patient's daughter. Expectations of his current condition were detailed. Dr. Gonzales had consulted hospice evaluation. However, it does not appear that this has been completed. When discussing the patient's care with a family member, the patient's daughter is concerned with his profound weakness and questions whether some improvement with mobility could be achieved with rehabilitation. It was agreed that consultation for rehabilitation will be pursued early this week. If the patient is unable to achieve adequate response, hospice care will be pursued. Overnight, the patient denies fevers, chills, nausea, vomiting, further syncopal episodes, palpitations, or chest discomfort. The patient remains very weak and unsteady on his feet. OBJECTIVE: Temperature maximum 100 degrees. Heart rate 78 to 87. Respirations 17 to 19. Blood pressure 128 to 143 over 61 to 77. General: Elderly. No acute distress. Cardiovascular: Regular rate and rhythm. No significant murmurs, rubs, or gallops. Pulmonary: Clear to auscultation bilaterally. Abdomen: Soft, nontender, nondistended. Positive bowel sounds. Extremities: Moves all extremities well. No significant clubbing, cyanosis, or edema. Dermatologic: Evaluation reveals no evidence of rash. LABORATORY DATA: None. ASSESSMENT AND PLAN: 1. Syncopal episode. -- Differential diagnosis remains broad. No definitive etiology was identified per echocardiogram, CT scan of the head, and CT scan of the cervical spine. Telemetry, thus far, has revealed no arrhythmia. At this point, working diagnosis is orthostatic hypotension combined with profound weakness. The patient's orthostasis has improved as described below. We will continue supportive care. He has not experienced a repeat episode while hospitalized. 2. Orthostatic hypotension. -- The patient has been treated with IV fluids. His orthostatics per yesterday evening had improved, approaching baseline. As he will be discharged without IV fluids, we will plan to discontinue fluids today. We will follow this. 3. Chest discomfort. -- The patient has multiple risk factors. At this point, this appears to have been musculoskeletal. He is chest pain free at present time. Cardiac enzymes returned negative. 4. Anemia. -- As of last evaluation, the patient had stable microcytic anemia. In the setting of not having a bowel movement since hospitalization, we will hold off on iron replacement. We will defer management to Dr. Gonzales at discharge. 5. Profound weakness. -- As described in the Subjective, the patient, the patient's daughter, and I had a long discussion yesterday. Expectations are for him to improve enough to return home. With this expectation, I feel rehabilitation will be most appropriate. I did discuss the concerns for his underlying medical conditions and his possibility for an inability to achieve improvement. If this proves to be the case, we will plan on transferring to hospice at that time. We will consult Fleet Manager/Dispatch in the a.m. We will continue physical therapy. 6. Hyponatremia. -- This improved with IV fluids. 7. Metastatic prostate cancer. -- We will remain aware. 8. Disposition. -- At this point, the patient continues to require correction care in a hospital setting. We will plan discharge home once appropriate. cc: MD Agus Benitez MD
[2018-11-30] MEDS: PRILOSEC PO SCH (06:03)
[2018-11-30] MEDS ORDERED: SENOKOT PO ONE (08:11)
[2018-11-30] MEDS ORDERED: FLEET ENEMA PR PRN (08:12)
[2018-11-30] MEDS ORDERED: VITAMIN C PO SCH (09:00)
[2018-11-30] MEDS ORDERED: FERGON PO SCH (09:00)
[2018-11-30] MEDS: MIRALAX PO SCH (09:13)
[2018-11-30] MEDS: ZOLOFT PO SCH (09:13)
--- NOTE | 2018-11-30 12:38 | Diag Imaging Result Doc PS360 ---
EXAM: CHEST-PORTABLE 11/30/2018 HISTORY: Rehab placement TECHNIQUE: AP portable at 1231 COMMENT: There is opacification of the lingula and left lower lobe with some apparent pleural fluid. The right lung is clear. The heart size is at the upper limits of normal. There are no previous studies available for comparison. IMPRESSION: Left pleural effusion and lingular and lower lobe atelectasis versus pneumonia. Electronically signed by Champ Rivers 11/30/2018 12:36 PM
[2018-11-30 13:24] VITALS: BP 128/66
--- NOTE | 2018-11-30 15:13 | DISCHARGE SUMMARY ---
ADMISSION DATE: 11/26/2018 DISCHARGE DATE: 11/30/2018 FINAL DIAGNOSES: 1. Syncope. 2. Orthostatic hypotension. 3. Left lingular pneumonia. 4. History of widely metastatic prostate cancer with bony involvement. 5. Type 2 diabetes mellitus, diet controlled. HISTORY OF PRESENT ILLNESS: Mr. Diallo is an 88-year-old gentleman with a past history of multiple medical problems, including metastatic prostate cancer. On the morning of admission he was seen by his home physical therapist and had a fairly vigorous exercise session with his left arm and developed increased pain, which I feel is due to his metastatic prostate cancer. Several hours later, after lunch, he was standing waiting for the bath aide to prepare his bath and was heard to fall and required assistance to sit back up. He did scrape his left scalp on the floor. Neighbors arrived and managed to get him up to a sitting position, but an ambulance was called and he was brought to the emergency room for further evaluation. He denied fever, chills, cough, shortness of breath, or chest discomfort. PHYSICAL EXAMINATION: Revealed he was afebrile with unremarkable vital signs, although he did have some orthostasis noted when attempting to stand. Supine blood pressure was 154/63. General appearance: He was well nourished, in no distress. Cardiac exam: Regular rate and rhythm. 3/6 systolic ejection murmur noted at the apex. His lungs were clear bilaterally. DATABASE: White blood count 11,800, hemoglobin 10.4, hematocrit 34%, which was similar to his baseline. Sodium was 131, BUN 17, creatinine 1.0. Urinalysis was unremarkable. HOSPITAL COURSE: He was admitted with a diagnosis of syncope and placed on monitoring and evaluation advisor. He was given IV fluids for his orthostasis. With intravenous normal saline, his hyponatremia resolved and this was stopped. I discussed hospice care with he and his daughter and they are considering it. They, however, prefer that he go to subacute rehab for attempts at increasing his strength and endurance so that he can remain at home with his . I feel this is certainly reasonable although I think he will be a good hospice candidate fairly soon. His chest x-ray, prior to rehab placement, did suggest a left lingular infiltrate and I have added some doxycycline orally for seven days. I will continue to follow him at [facility]. DISCHARGE MEDICATIONS: 1. Acetaminophen 650 mg q four hours p.r.n. for pain. 2. Ascorbic acid 500 mg daily with ferrous gluconate 240 mg daily. 3. [place] 5 one or two tablets q four hours p.r.n. for pain. 4. Omeprazole 20 mg daily. 5. Doxycycline 100 mg twice a day. cc: Agus Gonzales MD
== END 2018-11-30 16:42 | DRG 312 ==
LOC: ED 15:05 → 3N 21:29
PROVIDERS: ADMIT Internal Medicine; ATTEND Internal Medicine
CPT/HCPCS: 70450; 71010; 71045; 72125; 80053; 81001; 82533; 82550; 82607; 82728; 82746; 82948; 83540; 83550; 84439; 84443; 84484; 85025; 93005; 93306; 93880; 94761; 96360; 96361; 97116; 97162; 97530; 99285; A9270; J7030; XXXXX

== ENCOUNTER 2018-12-25 17:43 | Inpatient (IN) ==
--- NOTE | 2018-12-25 19:11 | Diag Imaging Result Doc PS360 ---
EXAM: CHEST-PORTABLE - 12/25/2018 HISTORY: SOB TECHNIQUE: Portable chest COMPARISON: 11/30/2018 FINDINGS: Inspiration is somewhat shallow. There is left basilar opacity which is decreased compared to prior. This may represent some combination of atelectasis, pleural fluid, and/or infiltrate. The remainder lungs appear grossly clear. There is no large pleural effusion or pneumothorax identified. The heart borders are partially obscured due to the shallow inspiration, heart size is probably upper range of normal. IMPRESSION: Somewhat shallow inspiration. Left basilar opacity which is decreased compared to prior. Electronically signed by Jett Neri 12/25/2018 7:09 PM
[2018-12-25 21:57] LABS: BASO# 0.01 X1000 (0.0-0.2); BASO% 0.1 % (0.0-0.8); EOS# 0.01 X1000 (0.0-0.7); EOS% 0.1 % (0.0-10.0); HEMATOCRIT 35.9 % (42.0-52.0); HEMOGLOBIN 11.2 g/dL (14.0-18.0); IMM GRAN# 0.13 X1000 (0.0-0.04); IMM GRAN% 0.9 % (0.0-0.5); LYMPH# 0.61 X1000 (1.2-3.4); LYMPH% 4.3 % (20.5-51.1); MCHC 31.2 g/dL (33-37); MCV 73.6 FL (81-99); MONO# 1.37 X1000 (0.11-0.59); MONO% 9.8 % (1.7-9.3); MPV 8.6 FL (7.4-10.4); NEUT# 11.91 X1000 (1.4-6.5); NEUT% 84.8 % (42.2-75.2); PLT 523 X1000 (130-400); RBC 4.88 XMIL (4.7-6.1); WBC 14.04 X1000 (4.8-10.8)
[2018-12-25 22:19] LABS: AGAP 12; ALB/GLOB RATIO 1.8; ALBUMIN 4.2 g/dL (3.5-5.0); ALKALINE PHOSPHATASE 164 U/L (32-122); BUN 15 mg/dL (8-22); CALCIUM 8.6 mg/dL (8.8-10.2); CHLORIDE 94 mmol/L (98-107); COSMO 272; CREATININE 0.9 mg/dL (0.7-1.2); ESTIMATED GFR > 60; GLUCOSE 212 mg/dL (70-104); GOT 16 U/L (10-34); GPT 9 U/L (10-44); MAGNESIUM 1.9 mg/dL (1.5-2.7); POTASSIUM 4.9 mmol/L (3.5-5.1); SODIUM 132 mmol/L (136-145); TCO2 26 mmol/L (25-35); TOTAL PROTEIN 6.6 g/dL (6.3-8.3)
[2018-12-25 22:20] LABS: URINE SOURCE CLEAN CATCH
[2018-12-25 22:33] LABS: BILIRUBIN URINE NEGATIVE (NEGATIVE); BLOOD URINE NEGATIVE (NEGATIVE); COLOR YELLOW; GLUCOSE URINE 150 mg/dL (NEGATIVE); KETONE URINE NEGATIVE (NEGATIVE); LEUKOCYTES URINE NEGATIVE (NEGATIVE); NITRITE URINE NEGATIVE (NEGATIVE); PROTEIN URINE 100 mg/dL (NEGATIVE); SP GRAVITY URINE 1.022; TURBIDITY URINE CLEAR (CLEAR); UR EPITHELIAL CELLS <10 /HPF (<10); URINE BACTERIA NEGATIVE /HPF; URINE RBC <10 /HPF (<10); URINE WBC <10 /HPF (<10); UROBILINOGEN URINE NORMAL (NORMAL)
[2018-12-25 22:56] LABS: CK INDEX 0.8 (0.0-2.5); CK-MB 2.47 ng/mL (0.0-5.0)
[2018-12-25] MEDS ORDERED: LASIX IV ONE (23:47)
--- NOTE | 2018-12-26 02:27 | PROVIDER DOCUMENTATION ---
This chart was entered by Mami August Scribe, acting as scribe for Trevon Cortez MD. HPI-General Adult <Umer Paez. - Last Filed: 12/26/18 02:39> - General Source: patient - History of Present Illness -Gen Adult Nature of Presenting Problems: Pt is currently on Hospice care for Prostate cancer, today it was reported that he had some SOB w/ rapid heart rate. He was brought in EMS. Location of Pain/Injury: reports: other (increased HR and SOB) Quality of Pain: reports: none Severity: reports: moderate Onset/Duration: reports: just prior to arrival Timing: reports: improving Context/Activities at Onset: reports: none Modifying Factors: improves with: nothing Associated Symptoms: reports: shortness of breath Similar Symptoms Previously?: No Recently seen or treated by another doctor?: No <Trevon Cortez - Last Filed: 01/01/19 00:51> - General Chief Complaint: Shortness of Breath Stated Complaint: sob Time Seen by Provider: 12/25/18 18:15 Allergies/Adverse Reactions: Patient Allergies Allergy/AdvReac Type Severity Reaction Status Date / Time "cholesterol med" Allergy Unknown Unknown Uncoded 12/26/18 00:04 Home Medications: Home Medication List Medication Instructions Recorded Confirmed Last Taken Type Aspirin 81 mg PO DAILY #0 01/21/17 12/26/18 12/25/18 Rx Cyanocobalamin (Vitamin B-12) 1,000 mcg PO DAILY 11/27/18 12/26/18 12/25/18 History [Vitamin B-12] Omeprazole [Prilosec] 20 mg PO DAILY 11/27/18 12/26/18 12/25/18 History Ascorbic Acid [Vitamin C] 500 mg PO DAILY tablet 11/30/18 12/26/18 12/25/18 Rx Sertraline [Zoloft] 50 mg PO QAM tablet 11/30/18 12/26/18 12/25/18 Rx Ferrous Sulfate [Iron] 27 mg PO DAILY 12/26/18 12/26/18 12/25/18 History Hydrocodone/APAP 5 mg/325 mg 1 - 2 each PO Q4H PRN PRN 12/26/18 12/26/18 History [[place]-5] Lorazepam 0.5 mg PO DAILY PRN PRN 12/26/18 12/26/18 12/25/18 History Prednisone 10 mg PO DAILY 12/26/18 12/26/18 12/25/18 History Review of Systems - Adult - REVIEW OF SYSTEMS - ADULT Constitutional: denies: chills, fever Eyes: reports: no symptoms reported Ears, Nose, Mouth & Throat: reports: no symptoms reported Cardiovascular: reports: no symptoms reported Respiratory: reports: shortness of breath. denies: cough Gastrointestinal: reports: no symptoms reported. denies: abdominal pain, nausea , vomiting Genitourinary: reports: no symptoms reported Musculoskeletal: reports: no symptoms reported Integumentary: reports: no symptoms reported Neurological: denies: dizziness/vertigo, headache/migraines, numbness Psychiatric: reports: no symptoms reported Endocrine: reports: no symptoms reported Hematologic/Lymphatic: reports: no symptoms reported Allergic/Immunologic: reports: no symptoms reported All Other Systems: Reviewed and Negative <Trevon Cortez - Last Filed: 01/01/19 00:51> Past History - Adult - PAST MEDICAL HISTORY-ADULT Review of Records: reports: Old Records Reviewed, Nursing Assessment Review, Medications Reviewed, Social history reviewed & non-contributory. 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) Musculoskeletal: reports: denies history Neurological: reports: denies history Endocrine/Immune: reports: denies history Other Conditions: reports: denies history - PRIOR SURGERIES/PROCEDURES Surgical/Procedure History: reports: reviewed, not pertinent - IMMUNIZATION STATUS Childhood Immunizations: See Nurse Assessment Flu Vaccine: See Nurse Assessment - FAMILY HISTORY Family History: reviewed, not pertinent - SOCIAL HISTORY Smoking: denies, non-smoker Substance Use: none/never Alcohol Use Frequency: never Living Situation: family <Trevon Cortez - Last Filed: 01/01/19 00:51> Physical Exam-General - PHYSICAL EXAM-ADULT Initial Vital Signs Reviewed: Yes - CONSTITUTIONAL General Appearance: appears well, alert, no apparent distress - EYES Eyes: PERRL/EOMI - HEAD, EARS, NOSE, MOUTH & THROAT HENMT: moist mucous membranes, normal ENT inspection, TMs normal, pharynx normal - NECK Neck: non-tender, full range of motion, supple, normal inspection - RESPIRATORY Respiratory: chest non-tender, lungs clear, normal breath sounds - CARDIOVASCULAR Cardiovascular: normal peripheral pulses, no edema, tachycardia - GASTROINTESTINAL (ABDOMEN) Abdominal Exam: normal bowel sounds, non tender, soft - LYMPHATIC Lymphatic: no adenopathy - MUSCULOSKELETAL Back Exam: normal inspection, no CVA tenderness, no vertebral tenderness Extremity: normal range of motion, non-tender, normal gait, normal inspection - SKIN Integumentary: normal color, warm/dry - NEUROLOGIC Neurologic: grossly normal - PSYCHIATRIC Psych/Mental Status: normal mood/affect, normal thought content, normal thought process, oriented x 3 <Trevon Cortez - Last Filed: 01/01/19 00:51> Progress - PLAN OF CARE/RESULTS Progress/Plan/Lab Results: Vital Signs - 8 hr 12/25/18 18:57 12/25/18 20:00 12/25/18 21:31 Temperature Pulse Rate 131 H 131 H 136 H Respiratory Rate 27 H 23 17 Blood Pressure 159/103 150/102 O2 Sat by Pulse Oximetry 96 99 100 12/25/18 21:46 12/25/18 22:15 12/25/18 22:16 Temperature Pulse Rate 132 H 140 H 139 H Respiratory Rate 24 26 H 24 Blood Pressure 121/88 149/105 149/105 O2 Sat by Pulse Oximetry 99 99 98 12/25/18 22:31 12/25/18 22:46 12/25/18 22:55 Temperature Pulse Rate 135 H 140 H 139 H Respiratory Rate 22 24 25 H Blood Pressure 164/103 162/111 133/86 O2 Sat by Pulse Oximetry 98 98 99 12/25/18 23:01 12/25/18 23:15 12/26/18 02:00 Temperature 98.1 F Pulse Rate 131 H 132 H 128 H Respiratory Rate 23 22 31 H Blood Pressure 143/99 132/77 126/83 O2 Sat by Pulse Oximetry 99 98 98 12/25/18 21:53 Influenza Screen - Final Nasopharyngeal Laboratory Results - last 24 hr 12/25/18 12/25/18 12/25/18 21:46 21:46 21:46 WBC 14.04 H RBC 4.88 Hgb 11.2 L Hct 35.9 L MCV 73.6 L MCH 23.0 L MCHC 31.2 L RDW Std Deviation 17.0 H Plt Count 523 H MPV 8.6 Immature Gran % (Auto) 0.9 H Neut % (Auto) 84.8 H Lymph % (Auto) 4.3 L [place] % (Auto) 9.8 H Eos % (Auto) 0.1 Baso % (Auto) 0.1 Immature Gran # (Auto) 0.13 H Neut # (Auto) 11.91 H Lymph # (Auto) 0.61 L [place] # (Auto) 1.37 H Eos # (Auto) 0.01 Baso # (Auto) 0.01 D-Dimer, Quantitative Sodium 132 L Potassium 4.9 Chloride 94 L Carbon Dioxide 26 Anion Gap 12 BUN 15 Creatinine 0.9 Estimated GFR/1.73 m2 > 60 BUN/Creatinine Ratio 17 Glucose 212 H Calculated Osmolality 272 Calcium 8.6 L Magnesium 1.9 Total Bilirubin 0.40 AST 16 ALT 9 L Alkaline Phosphatase 164 H Creatine Kinase 312 H Creatine Kinase Index 0.8 CK-MB (CK-2) 2.47 Troponin T Bsl-G-[id number] Pept Total Protein 6.6 Albumin 4.2 Globulin 2.4 Albumin/Globulin Ratio 1.8 Urine Source Urine Color Urine Turbidity Urine pH Ur Specific [place] Urine Protein Ur Glucose (Stick) Ur Ketones (Stick) Urine Blood Urine Nitrite Urine Bilirubin Urobilinogen Dipstick Urine Leukocytes Urine WBC (Auto) Urine RBC (Auto) U Epithel Cells (Auto) Urine Bacteria (Auto) 12/25/18 12/25/18 12/25/18 21:46 21:46 21:46 WBC RBC Hgb Hct MCV MCH MCHC RDW Std Deviation Plt Count MPV Immature Gran % (Auto) Neut % (Auto) Lymph % (Auto) [place] % (Auto) Eos % (Auto) Baso % (Auto) Immature Gran # (Auto) Neut # (Auto) Lymph # (Auto) [place] # (Auto) Eos # (Auto) Baso # (Auto) D-Dimer, Quantitative 4.17 H Sodium Potassium Chloride Carbon Dioxide Anion Gap BUN Creatinine Estimated GFR/1.73 m2 BUN/Creatinine Ratio Glucose Calculated Osmolality Calcium Magnesium Total Bilirubin AST ALT Alkaline Phosphatase Creatine Kinase Creatine Kinase Index CK-MB (CK-2) Troponin T 0.020 Bkf-S-Rdxczlnumct Pept 2609 H Total Protein Albumin Globulin Albumin/Globulin Ratio Urine Source Urine Color Urine Turbidity Urine pH Ur Specific [place] Urine Protein Ur Glucose (Stick) Ur Ketones (Stick) Urine Blood Urine Nitrite Urine Bilirubin Urobilinogen Dipstick Urine Leukocytes Urine WBC (Auto) Urine RBC (Auto) U Epithel Cells (Auto) Urine Bacteria (Auto) 12/25/18 22:15 WBC RBC Hgb Hct MCV MCH MCHC RDW Std Deviation Plt Count MPV Immature Gran % (Auto) Neut % (Auto) Lymph % (Auto) [place] % (Auto) Eos % (Auto) Baso % (Auto) Immature Gran # (Auto) Neut # (Auto) Lymph # (Auto) [place] # (Auto) Eos # (Auto) Baso # (Auto) D-Dimer, Quantitative Sodium Potassium Chloride Carbon Dioxide Anion Gap BUN Creatinine Estimated GFR/1.73 m2 BUN/Creatinine Ratio Glucose Calculated Osmolality Calcium Magnesium Total Bilirubin AST ALT Alkaline Phosphatase Creatine Kinase Creatine Kinase Index CK-MB (CK-2) Troponin T Rff-S-Beroyygyxsl Pept Total Protein Albumin Globulin Albumin/Globulin Ratio Urine Source CLEAN CATCH Urine Color YELLOW Urine Turbidity CLEAR Urine pH 7.0 Ur Specific [place] 1.022 Urine Protein 100 A Ur Glucose (Stick) 150 A Ur Ketones (Stick) NEGATIVE Urine Blood NEGATIVE Urine Nitrite NEGATIVE Urine Bilirubin NEGATIVE Urobilinogen Dipstick NORMAL Urine Leukocytes NEGATIVE Urine WBC (Auto) <10 Urine RBC (Auto) <10 U Epithel Cells (Auto) <10 Urine Bacteria (Auto) NEGATIVE Orders Category Date Time Status CT ANGIOGRM PULMONARY ARTERIES [CT] Stat Exams 12/25/18 23:55 Taken cxr [CHEST-PORTABLE] [RAD] Stat Exams 12/25/18 18:37 Completed CBC WITH ELECTRONIC DIFF [HEME] Stat Lab 12/25/18 21:46 Completed CK PROFILE [SP CHEM] Stat Lab 12/25/18 21:46 Completed COMPREHENSIVE METABOLIC PANEL [CHEM] Stat Lab 12/25/18 21:46 Completed D-DIMER [COAG] Stat Lab 12/25/18 21:46 Completed INFLUENZA SCREEN A/B Stat Lab 12/25/18 21:53 Completed MAGNESIUM [CHEM] Stat Lab 12/25/18 21:46 Completed PRO B-NATRIURETIC PEPTIDE Stat Lab 12/25/18 21:46 Completed TROPONIN T Stat Lab 12/25/18 21:46 Completed URINALYSIS W/POSS RFLX CULT [URINALYSIS] Stat Lab 12/25/18 22:15 Completed Furosemide [Lasix] Med 12/25/18 23:47 Discontinued 40 mg IV NOW ONE EKG [EKG] Stat Ther 12/25/18 18:38 Ordered EKG [EKG] Stat Ther 12/26/18 02:17 Ordered Result Diagrams: 12/25/18 21:46 12/25/18 21:46 - CT/MRI 1 CT Study: Thorax Impression: Abnormal CT Results: LAE, with interstitial pul edema, pneumonia in lingula and LLL - CONSULTS/PCP/HOSPITALIST Notification #1 *Consult/PCP/Hospitalist*: Bryan Time Discussed: 02:47 Consult Disposition: Will see in ED, Admit <Umer Paez - Last Filed: 12/26/18 02:39> - PLAN OF CARE/RESULTS Progress/Plan/Lab Results: Vital Signs - 8 hr 12/25/18 17:51 Temperature 98.5 F Pulse Rate 129 H Respiratory Rate 20 Blood Pressure 152/105 O2 Sat by Pulse Oximetry 100 Orders Category Date Time Status cxr [CHEST-PORTABLE] [RAD] Stat Exams 12/25/18 18:37 Ordered CBC WITH ELECTRONIC DIFF [HEME] Stat Lab 12/25/18 18:37 Uncollected COMPREHENSIVE METABOLIC PANEL [CHEM] Stat Lab 12/25/18 18:37 Uncollected INFLUENZA SCREEN A/B Stat Lab 12/25/18 18:38 Uncollected MAGNESIUM [CHEM] Stat Lab 12/25/18 18:37 Uncollected URINALYSIS W/POSS RFLX CULT [URINALYSIS] Stat Lab 12/25/18 18:37 Uncollected EKG [EKG] Stat Ther 12/25/18 18:38 Ordered Result Diagrams: 12/30/18 05:00 12/30/18 07:40 - REASSESSMENT Reassessment #1 Time Reassessed: 01:18 Status: other (PENDING CTPA TO BE READ BY RADIOLOGIST.) - EKG 1 Time of EKG reading by physician:: 20:58 EKG Read and Signed by:: Trevon Cortez EKG Interpretation (*Must complete 3 of following elements*): Abnormal (sinus tachycardia, cannot rule out Anterior infarct, age undetermined Abnormal ECG) Rate: 132 Rhythm: sinus tachycardia [place]: normal QRS: normal - CHANGE OF SHIFT REPORT (ED Provider) 1 Report Given and Care Transferred to:: DR. PAEZ Time of Transfer: 02:26 Items Pending: CT/MRI Results, Physician Consult/Arrival, Other (PATIENT CARE) <Trevon Cortez - Last Filed: 01/01/19 00:51> Departure - Departure Date of Disposition Decision: 12/26/18 Time of Disposition Decision: 02:47 Certified Medical Emergency: Emergent - Critical Care Note This patient required my direct & personal management of CC.: No <Umer Paez - Last Filed: 12/26/18 02:39> <Trevon Cortez - Last Filed: 01/01/19 00:51> - Departure DIAGNOSIS: Lingular pneumonia, New onset atrial fibrillation Left lower lobe pneumonia Qualifiers: Pneumonia type: due to unspecified organism Qualified Code(s): J18.1 - Lobar pneumonia, unspecified organism Congestive heart failure Qualifiers: Heart failure type: unspecified Heart failure chronicity: acute Qualified Code( s): I50.9 - Heart failure, unspecified Disposition: ADMITTED INPATIENT 09 Condition: Fair Attestation - Physician/ LAZARA Attestation Patient care was provided by Advanced Practice Provider:: No The physician spent face to face time with patient:: Yes Advanced Practice Provider documentation review:: Supervising physician onsite and consulted in the evaluation and care of this patient. The physician did have a face to face encounter with the patient. <Trevon Cortez - Last Filed: 01/01/19 00:51> This chart was documented by the indicated scribe, (Mami August Scribe) and accurately reflects the services I performed and decisions made by me, Trevon Cortez MD, as attested by the provider's signature.
[2018-12-26] MEDS ORDERED: ROCEPHIN 1 GM in NS 50 ML IV ONE (02:40)
[2018-12-26] MEDS ORDERED: ZITHROMAX 500 MG/NS 500 MG/250 ML IVPB IV ONE (02:40)
[2018-12-26] MEDS ORDERED: CARDIZEM IV ONE (02:42)
[2018-12-26] MEDS ORDERED: CARDIZEM 100 MG in NS 80 ML IV SCH (03:15)
--- NOTE | 2018-12-26 04:36 | HISTORY AND PHYSICAL ---
PRIMARY CARE PHYSICIAN: Dr. Gonzales. CHIEF COMPLAINT: Shortness of breath. HISTORY OF PRESENTING ILLNESS: An 88-year-old male with a history of metastatic prostate cancer to bone and GERD, who had presented to the emergency department with 1-week history of worsening shortness of breath. The patient states he was coughing and was having difficulty breathing. He was evaluated in the emergency department. He had imaging done which did show pneumonia. Subsequently, he will need admission for further management. At the time of my examination, he had denied any headache, nausea, vomiting, diarrhea, chest pain, hemoptysis, but complained of shortness of breath and cough. Patient also was found to be in Atrial Fib and was started on cardizem drip . PAST MEDICAL HISTORY: Includes metastatic prostate cancer to bone, GERD. PAST SURGICAL HISTORY: None. ALLERGIES: Cholesterol medications. CURRENT MEDICATIONS: Include ascorbic acid 500 mg p.o. daily, aspirin 81 mg p.o. daily, ferrous sulfate 1 tablet daily, [place] 5/325 one p.o. q.4 hours, lorazepam 0.5 mg p.o. daily, omeprazole 20 mg p.o. daily, prednisone 10 mg p.o. daily, sertraline 50 mg p.o. q.a.m. SOCIAL HISTORY: He is a former smoker. Denies any history of alcohol or illicit drug use. FAMILY HISTORY: No history of coronary artery disease. REVIEW OF SYSTEMS: Fourteen point review of systems as listed in the HPI. Other systems negative. PHYSICAL EXAMINATION: GENERAL: Cooperative, friendly male. He is resting comfortably now. VITAL SIGNS: Temperature 98.1 degrees, pulse 132, respirations 22, blood pressure 132/77. HEENT: Atraumatic, normocephalic. Extraocular movements intact. PERRLA. NECK: No masses. CHEST: Bibasilar rales. CARDIOVASCULAR: Regular rate and rhythm. ABDOMEN: Soft, positive bowel sounds. EXTREMITIES: No edema. NEUROLOGIC: He is awake, alert, oriented x3. GENITOURINARY: No bladder distention. SKIN: Warm. LABORATORIES AND STUDIES: WBCs 14.04, hemoglobin 11.2, hematocrit 35.9, platelets 523,000. Sodium 132, potassium 4.9, chloride 94, CO2 of 26, BUN is 15, creatinine 0.9, glucose 212. Troponin 0.020. ASSESSMENT: This is an 88-year-old male with a history of metastatic prostate cancer and gastroesophageal reflux disease, who had presented to the emergency department with 1-week history of worsening shortness of breath. He was evaluated the emergency department. He had imaging done which was consistent with pneumonia. Subsequently, he will need admission for further management. 1. Pneumonia. 2. Metastatic prostate cancer. 3. Atrial Fibrillation 4.Gastroesophageal reflux disease. PLAN: 1. We will admit patient to medical floor with telemetry. 2. We will check blood cultures. Start patient on IV antibiotics. 3. Continue with DuoNebs p.r.n. 4. continue with cardizem drip and consult cardiology 5. We will restart his other home medications. 6. Put patient on DVT prophylaxis with SCDs and heparin. 7. We will continue to follow, and reassess and make further recommendations based on patient's clinical course. cc: Tristan Adams MD MTDD
[2018-12-26] MEDS ORDERED: NS 500 ML IV ONE (05:44)
[2018-12-26] MEDS ORDERED: NS 500 ML ONE (05:53)
--- NOTE | 2018-12-26 07:14 | Diag Imaging Result Doc PS360 ---
EXAM: CT ANGIOGRM PULMONARY ARTERIES HISTORY: SINUS TACHY IN 130S + DDIMER AT 4 + SOB TECHNIQUE: CT chest with intravenous contrast. Pulmonary arterial protocol with MIP images COMPARISON: None. FINDINGS: There is a small left-sided pleural effusion measuring approximately 1.4 cm posteriorly and inferiorly in the midline with trace right pleural fluid. These were not present on the abdomen and pelvis CT from 05/06/2017. Prominent atherosclerosis. No definite aortic aneurysm or dissection. Normal opacification of the pulmonary arteries and their major branches. There is vascular distention. No enlarged lymph nodes. There is a right lower lobe calcified granuloma. There are dense infiltrates with air bronchograms in the left lower lobe. Small infiltrates are found posteriorly in the lingular segment of the left upper. Primarily sclerotic lesions throughout the cervical and thoracic spine. Limited images through the upper abdomen reveal a cholecystectomy, scattered renal cysts, and small renal stones. IMPRESSION: 1.No pulmonary emboli 2.Left lower lobe pneumonia with a smaller infiltrate in the posterior lingula of the left upper lobe. 3.Pulmonary edema 4.Sclerotic bone lesions concerning for metastases 5.A preliminary report was given at 2:23 AM This exam was performed using automated exposure control, adjustment of mA or kV according to patient size, and/or use of iterative reconstruction technique. Electronically signed by Denny Fan 12/26/2018 7:12 AM
[2018-12-26] MEDS: ASPIRIN PO SCH (09:24)
[2018-12-26] MEDS: VITAMIN B-12 PO SCH (09:24)
[2018-12-26] MEDS: PRILOSEC PO SCH (09:24)
[2018-12-26] MEDS: FERROUS SULFATE PO SCH (09:24)
[2018-12-26] MEDS: VITAMIN C PO SCH (09:24)
[2018-12-26] MEDS: ZOLOFT PO SCH (09:24)
[2018-12-26] MEDS: HEPARIN SUBQ SCH ×2 (09:25→21:47)
[2018-12-26] MEDS: PREDNISONE PO SCH (09:25)
[2018-12-26] MEDS: CARDIZEM 125/NS 125 MG/125 ML IVPB IV SCH (09:40)
[2018-12-26 10:03] LABS: INR 1.09
[2018-12-26 10:04] LABS: AGAP 11; ALB/GLOB RATIO 1.2; ALBUMIN 3.6 g/dL (3.5-5.0); ALKALINE PHOSPHATASE 144 U/L (32-122); BUN 13 mg/dL (8-22); CALCIUM 7.8 mg/dL (8.8-10.2); CHLORIDE 97 mmol/L (98-107); COSMO 272; CREATININE 0.8 mg/dL (0.7-1.2); ESTIMATED GFR > 60; GLUCOSE 193 mg/dL (70-104); GOT 13 U/L (10-34); GPT 9 U/L (10-44); POTASSIUM 4.1 mmol/L (3.5-5.1); PTT 34.7 Seconds (22.3-41.8); SODIUM 133 mmol/L (136-145); TCO2 25 mmol/L (25-35); TOTAL BILIRUBIN 0.32 mg/dL (0.20-1.00); TOTAL PROTEIN 6.7 g/dL (6.3-8.3)
--- NOTE | 2018-12-26 10:21 | PROGRESS NOTE ---
DATE: 12/26/2018 SUBJECTIVE: The patient was apparently admitted in the early hours of the morning after a 1 week history of shortness of breath. He was found to have a left lower lobe pneumonia and new onset atrial fibrillation with rapid ventricular response. He was admitted by the hospitalist team this morning. OBJECTIVE: VITAL SIGNS: Temperature is 99.1 degrees, pulse rate is 135, respiratory rate is 20, blood pressure is 167/103. The patient is 93% saturated on 2 L nasal cannula. LUNGS: Slightly decreased breath sounds in the left base but otherwise good air movement. The patient is not struggling to breathe. CARDIOVASCULAR: The patient is markedly tachycardic and appears to be atrial fibrillation on the monitor. EXTREMITIES: No significant peripheral edema. NEURO/PSYCH: The patient is alert, oriented, conversive and appropriate. LABORATORY: Laboratories were drawn last night and white cell count was 14, hematocrit 36. BUN and creatinine normal. Glucose was 212. CK and alkaline phosphatase were up but with normal MB fractions and normal troponin. Slightly increased ProBNP. Urine was clear. ASSESSMENT AND PLAN: 1. The patient has a left lower lobe pneumonia. He is on appropriate antibiotics. We were unable to give him any Albuterol to help open up the airway because of his atrial fibrillation. 2. The patient was found to be in atrial fibrillation with rapid ventricular response. He was initially started on a Cardizem drip. This was discontinued when his blood pressure dropped. His blood pressure has since come up after a fluid bolus and we are starting the Cardizem drip back now for some rate control measures. The patient is on heparin every 12 hours because of the atrial fibrillation and for DVT prophylaxis. 3. The patient has known metastatic prostate cancer. He is getting Lupron injections every 6 months. 4. Due to age and infirmity, I would be reluctant to run a resuscitative code on this patient. At the present time though he is full code and hopefully will not show a marked decline. That would be a very critical decision point going down the line given age, infirmity and comorbidities. cc: MD Agus Ferrell MD
[2018-12-26] MEDS: LOPRESSOR PO SCH ×2 (14:46→21:47)
--- NOTE | 2018-12-26 15:40 | CARDIOLOGY CONSULTATION ---
DATE: 12/26/2018 HISTORY OF PRESENT ILLNESS: Mr. Diallo is an 88-year-old gentleman who presented with a chief complaint of shortness of breath. He has a history of metastatic prostate cancer and reflux. The patient is an extremely poor historian. Says the symptoms have been going on for around 3 weeks. He denies any fevers or heart racing. On presentation to the emergency room, he was found to be in atrial fibrillation and appears also to have a left lower lobe pneumonia. PAST MEDICAL HISTORY: Significant for: 1. Metastatic prostate cancer with bone metastases. 2. Reflux disease. SOCIAL HISTORY: From chart review, he is a previous smoker. No current alcohol or illicit drugs. FAMILY HISTORY: Unable to be obtained secondary to the patient's very poor communication. REVIEW OF SYSTEMS: Unable to be obtained secondary to the patient's very poor communication. PHYSICAL EXAMINATION: Vital Signs: Patient is afebrile. His heart rate is in the 130s during my examination, appears to be in atrial flutter. His blood pressure is 126/82. General: He is in no acute distress. HEENT: Oropharynx is moist. Poor dentition. Eye examination is pink conjunctivae, white sclerae. Neck: Examination shows no obvious thyromegaly or thyroid tenderness. Cardiovascular: He sounds to be in a tachycardic and regular rhythm. His monitor shows atrial flutter. He has no lower extremity edema. Chest: Has coarse breath sounds somewhat diffusely. He has very poor inspiratory effort. Abdomen: Soft, nontender, nondistended. He has no obvious organomegaly. Skin: Warm and dry throughout without any rashes. Neurological: He is moving all extremities. He has no lateralizing deficits. PERTINENT DATA: His EKG reviewed by me seems to demonstrate atrial flutter. His rate appears to be 128 beats per minute. That was on EKG at 2:20 this morning. His pulmonary arteriogram demonstrated a left lower lobe pneumonia with possible pulmonary edema. He had laboratory data with a white count of 14, hematocrit of 36. His platelet count is 523,000. His sodium is 133, potassium 4.1, BUN 13, creatinine 0.8. Troponin has been negative. ASSESSMENT: Mr. Diallo is an 88-year-old gentleman who presented with pneumonia and was found to be in atrial flutter. PLAN: He is on a Cardizem infusion presently. We will try to add in some beta-blockade to try to control his rate a little bit better. I will start out with metoprolol at a dose of 25 mg p.o. q.6 hours. I will hold off anticoagulation at this time. Patient is 88 years old and I am unclear if he has a level of dementia as he is a very poor historian. In addition, I am unclear about the patient's potential fall risk as he does seem somewhat frail. cc: MD Agus Ureña MD
[2018-12-27] MEDS: CARDIZEM 125/NS 125 MG/125 ML IVPB IV SCH (01:09)
[2018-12-27] MEDS: LOPRESSOR PO SCH ×4 (01:58→21:19)
[2018-12-27] MEDS: ROCEPHIN 1 GM in NS 50 ML IV SCH (03:24)
[2018-12-27] MEDS: ZITHROMAX 500 MG/NS 500 MG/250 ML IVPB IV SCH (03:26)
[2018-12-27 05:40] LABS: BASO# 0.01 X1000 (0.0-0.2); BASO% 0.1 % (0.0-0.8); EOS# 0.03 X1000 (0.0-0.7); EOS% 0.3 % (0.0-10.0); HEMATOCRIT 34.2 % (42.0-52.0); HEMOGLOBIN 10.1 g/dL (14.0-18.0); IMM GRAN# 0.11 X1000 (0.0-0.04); IMM GRAN% 0.9 % (0.0-0.5); LYMPH# 0.82 X1000 (1.2-3.4); LYMPH% 6.9 % (20.5-51.1); MCH 22.5 PG (27-31); MCHC 29.5 g/dL (33-37); MCV 76.3 FL (81-99); MONO% 11.9 % (1.7-9.3); MPV 8.7 FL (7.4-10.4); NEUT# 9.43 X1000 (1.4-6.5); NEUT% 79.9 % (42.2-75.2); PLT 468 X1000 (130-400); RBC 4.48 XMIL (4.7-6.1)
[2018-12-27] MEDS: ATIVAN PO PRN ×2 (05:52→23:40)
[2018-12-27 05:56] LABS: AGAP 7; BUN 16 mg/dL (8-22); CALCIUM 8.1 mg/dL (8.8-10.2); CHLORIDE 98 mmol/L (98-107); COSMO 272; CREATININE 0.7 mg/dL (0.7-1.2); ESTIMATED GFR > 60; GLUCOSE 151 mg/dL (70-104); POTASSIUM 4.5 mmol/L (3.5-5.1); SODIUM 134 mmol/L (136-145); TCO2 29 mmol/L (25-35)
--- NOTE | 2018-12-27 08:48 | PROGRESS NOTE ---
DATE: 12/27/2018 SUBJECTIVE: The patient is sitting in bed, taking a breathing treatment through an aerosol face mask. He is in no distress. He is a little bit somnolent but easily arousable and seems oriented when we are conversing. He expresses no complaints. Denies shortness of breath, chest pain, or palpitations. OBJECTIVE: Vital Signs: 96.1, 69, 18, 164/83. Physical Examination: The patient has some coarse breath sounds in the left upper lobe and there are decreased breath sounds in the left base. Right side is grossly normal with slightly decreased breath sounds in the right base. Laboratory: White cell count is down to 11.8, hematocrit is 34.2. BUN 16, creatinine 0.7. Blood sugars are slightly up and in the diabetic range but not critical. ASSESSMENT AND PLAN: 1. Patient's left lower lobe pneumonia and lingular infiltrate persist. He has a little bit more in the way of physical findings on exam today than he did yesterday. White cell count is improved. He is on appropriate antibiotics. 2. The patient's atrial fibrillation resolved after being on the Cardizem drip for some time. The drip is presently turned off. Blood pressure and pulse are stable. We will continue heparin. 3. The patient has known metastatic prostate cancer. 4. Although the patient has shown no significant downturn, he has not really shown any signs of improvement yet either. He will likely need inpatient care. 5. It would be beneficial to address resuscitation status with the patient. cc: MD Agus Ferrell MD
[2018-12-27] MEDS: ASPIRIN PO SCH (08:58)
[2018-12-27] MEDS: VITAMIN C PO SCH (08:58)
[2018-12-27] MEDS: VITAMIN B-12 PO SCH (08:58)
[2018-12-27] MEDS: HEPARIN SUBQ SCH ×2 (08:58→21:19)
[2018-12-27] MEDS: ZOLOFT PO SCH (08:58)
[2018-12-27] MEDS: FERROUS SULFATE PO SCH (08:58)
[2018-12-27] MEDS: PREDNISONE PO SCH (08:58)
[2018-12-27] MEDS: PRILOSEC PO SCH (08:58)
--- NOTE | 2018-12-27 13:19 | CARDIOLOGY PROGRESS NOTE ---
DATE: 12/27/2018 SUBJECTIVE: Mr. Diallo thinks he is breathing better. He thinks his cough has improved as well. He is sitting up tolerating oral intake. OBJECTIVE: Vitals: He is afebrile, heart rate is 67, his blood pressure is 175/94. Generally: He is in no acute distress. Cardiovascular: He sounds to be in a regular rate and rhythm. Current telemetry shows sinus rhythm. Chest: Has coarse breath sounds somewhat diffusely. No increased work of breathing. Abdomen: Soft and nontender. PERTINENT DATA: Sodium 134, potassium 4.5, BUN 16, creatinine 0.7. ASSESSMENT: Mr. Diallo is an 88-year-old gentleman with a history of metastatic prostate cancer who presented with new atrial fibrillation as well as with a pneumonia. PLAN: The patient is quite frail. He has converted over to sinus rhythm. I will continue him on his current metoprolol dosing that he is on. I would not place him on high dose anticoagulation as the patient is somewhat frail. I am unclear of his mental status. In addition, he needs a thorough fall risk evaluation. cc: MD Agus Ureña MD
[2018-12-28] MEDS: LOPRESSOR PO SCH ×4 (01:34→20:19)
[2018-12-28] MEDS ORDERED: LASIX IV ONE (01:59)
[2018-12-28] MEDS: ALBUTEROL NEB INH SCH ×2 (02:13→03:00)
[2018-12-28] MEDS: ROCEPHIN 1 GM in NS 50 ML IV SCH (03:55)
[2018-12-28] MEDS: ZITHROMAX 500 MG/NS 500 MG/250 ML IVPB IV SCH (04:32)
[2018-12-28] MEDS: HEPARIN SUBQ SCH ×2 (08:25→20:28)
[2018-12-28] MEDS: VITAMIN C PO SCH (08:26)
[2018-12-28] MEDS: PRILOSEC PO SCH (08:26)
[2018-12-28] MEDS: ASPIRIN PO SCH (08:26)
[2018-12-28] MEDS: PREDNISONE PO SCH (08:26)
[2018-12-28] MEDS: VITAMIN B-12 PO SCH (08:26)
[2018-12-28] MEDS: ZOLOFT PO SCH (08:28)
--- NOTE | 2018-12-28 09:23 | EKG Report ---
Test Performed on : 12/26/2018 02:18:55 AM Test Reason : MW Blood Pressure : / mmHG Vent. Rate : 128 BPM Atrial Rate : 384 BPM P-R Int : 000 ms QRS Dur : 096 ms QT Int : 338 ms P-R-T Axes : 000 009 048 degrees QTc Int : 493 ms Atrial flutter. with variable AV block. Abnormal ECG When compared with ECG of 25-DEC-2018 20:58, (Unconfirmed) Atrial flutter. has replaced Sinus rhythm. Unconfirmed Result
--- NOTE | 2018-12-28 11:07 | EKG Report ---
Test Performed on : 12/25/2018 8:58:22 PM Test Reason : TACHY Blood Pressure : / mmHG Vent. Rate : 132 BPM Atrial Rate : 132 BPM P-R Int : 152 ms QRS Dur : 098 ms QT Int : 324 ms P-R-T Axes : 000 001 026 degrees QTc Int : 480 ms Sinus tachycardia. Cannot rule out Anterior infarct , age undetermined Abnormal ECG When compared with ECG of 26-NOV-2018 18:00, (Unconfirmed) [place] interval has decreased Vent. rate has increased BY 48 BPM Unconfirmed Result
--- NOTE | 2018-12-28 12:53 | CARDIOLOGY PROGRESS NOTE ---
DATE: 12/28/2018 SUBJECTIVE: Mr. Diallo reports he is dyspneic today. He has no pain complaints. He does seem somewhat confused, a difficult historian. PHYSICAL EXAMINATION: Vital Signs: He is afebrile, heart rate is 76, his blood pressure is 131/74. His Is and Os are somewhat difficult to track secondary to incontinent voids. General: No acute distress. Ill-appearing, elderly male. Cardiovascular: He sounds to be in a regular rate and rhythm. I did not hear any obvious murmurs. He has no lower extremity edema. Chest: Examination is clear bilaterally, although it is a very poor exam secondary to poor inspiratory effort. Gastrointestinal: His abdomen is soft, nontender. PERTINENT DATA: He has no chemistry or CBC data today. ASSESSMENT: Mr. Diallo is an 88-year-old gentleman who presented with pneumonia and new onset atrial fibrillation. PLAN: I will check a portable chest x-ray today to assess his dyspnea further. I would not proceed with anticoagulation in this patient secondary to his comorbidities. Continue on metoprolol at present dosing. cc: MD Agus Ureña MD
--- NOTE | 2018-12-28 14:14 | Diag Imaging Result Doc PS360 ---
EXAM: CHEST-PORTABLE INDICATION: dyspnea TECHNIQUE: One view COMPARISON: 12/25/2018 FINDINGS: Inspiration is suboptimal. There are bibasilar small pleural effusions, largest on the left. These are approximately stable. There is adjacent atelectasis and/or infiltrate at the lung bases that is similar to the previous study. No new consolidations are identified. Cardiac silhouette is stable. IMPRESSION: Lower lung volumes but essentially stable chest, otherwise. Electronically signed by Andriy Griffith 12/28/2018 2:11 PM
[2018-12-28] MEDS: ALBUTEROL NEB INH PRN ×2 (19:33→23:07)
[2018-12-28] MEDS: ATIVAN PO PRN (20:19)
[2018-12-29] MEDS: ATIVAN PO PRN ×3 (01:39→23:15)
[2018-12-29] MEDS: ALBUTEROL NEB INH PRN ×3 (03:22→23:44)
[2018-12-29] MEDS: ROCEPHIN 1 GM in NS 50 ML IV SCH (03:22)
[2018-12-29] MEDS: VITAMIN C PO SCH (09:35)
[2018-12-29] MEDS: ASPIRIN PO SCH (09:35)
[2018-12-29] MEDS: ZOLOFT PO SCH (09:35)
[2018-12-29] MEDS: LOPRESSOR PO SCH ×2 (09:35→20:25)
[2018-12-29] MEDS: PRILOSEC PO SCH (09:35)
[2018-12-29] MEDS: HEPARIN SUBQ SCH ×2 (09:35→20:25)
[2018-12-29] MEDS: VITAMIN B-12 PO SCH (09:35)
--- NOTE | 2018-12-29 13:06 | CARDIOLOGY PROGRESS NOTE ---
DATE: 12/29/2018 SUBJECTIVE: Mr. Diallo has no complaints today. He is tolerating oral intake. PHYSICAL EXAMINATION: Vital signs: Patient is afebrile, heart rate is 68, his blood pressure is 168/87. Most of his systolics appear to be in the 150s to 170s. Generally: He is in no acute distress. Cardiovascular: He sounds to be in a regular rate and rhythm. He appears to be in sinus based on his telemetry. He has no murmurs. He has no lower extremity edema. Chest: Exam sounds clear bilaterally. He has no increased work of breathing. Abdomen: Soft, nontender, nondistended. He has no obvious organomegaly. PERTINENT DATA: He has no laboratory or chemistry data from today. ASSESSMENT: Mr. Diallo is an 88-year-old gentleman who presented with: 1. Atrial fibrillation. 2. Pneumonia. PLAN: He is in sinus rhythm. Please contact us if we can be of further assistance with this patient. He is not a candidate for long-term anticoagulation. I would continue him on the aspirin, as well as metoprolol. cc: MD Agus Ureña MD
[2018-12-30] MEDS: ROCEPHIN 1 GM in NS 50 ML IV SCH (04:40)
[2018-12-30 06:01] LABS: BASO# 0.01 X1000 (0.0-0.2); BASO% 0.1 % (0.0-0.8); EOS# 0.04 X1000 (0.0-0.7); EOS% 0.4 % (0.0-10.0); HEMATOCRIT 37.5 % (42.0-52.0); LYMPH# 0.87 X1000 (1.2-3.4); LYMPH% 9.3 % (20.5-51.1); MCH 22.8 PG (27-31); MCHC 29.3 g/dL (33-37); MCV 77.6 FL (81-99); MONO# 0.92 X1000 (0.11-0.59); MONO% 9.8 % (1.7-9.3); NEUT# 7.56 X1000 (1.4-6.5); NEUT% 80.4 % (42.2-75.2); PLT 479 X1000 (130-400); RBC 4.83 XMIL (4.7-6.1); RDW 17.5 % (11.5-14.5)
--- NOTE | 2018-12-30 06:18 | EKG Report ---
Test Performed on : 12/30/2018 04:50:09 AM Test Reason : AFIB TO SR Blood Pressure : / mmHG Vent. Rate : 083 BPM Atrial Rate : 083 BPM P-R Int : 236 ms QRS Dur : 098 ms QT Int : 412 ms P-R-T Axes : 031 008 059 degrees QTc Int : 484 ms Sinus rhythm. with 1st degree AV block. with premature atrial complexes. Prolonged QT Abnormal ECG When compared with ECG of 29-DEC-2018 22:26, (Unconfirmed) Sinus rhythm. has replaced Atrial fibrillation. Confirmed by Jaleel Paulino MD ([id number]) on 12/30/2018 6:37:55 AM
--- NOTE | 2018-12-30 06:22 | EKG Report ---
Test Performed on : 12/29/2018 10:26:48 PM Test Reason : rhythm change Blood Pressure : / mmHG Vent. Rate : 083 BPM Atrial Rate : 083 BPM P-R Int : 000 ms QRS Dur : 106 ms QT Int : 412 ms P-R-T Axes : 000 011 055 degrees QTc Int : 484 ms Atrial fibrillation. Prolonged QT Abnormal ECG When compared with ECG of 26-DEC-2018 02:18, (Unconfirmed) Atrial fibrillation. has replaced Atrial flutter. Vent. rate has decreased BY 45 BPM Confirmed by Lora FERGUSON, Jaleel Hernandez ([id number]) on 12/30/2018 6:37:52 AM
[2018-12-30 08:15] LABS: AGAP 11; ALB/GLOB RATIO 1.4; ALBUMIN 3.8 g/dL (3.5-5.0); ALKALINE PHOSPHATASE 120 U/L (32-122); BUN 20 mg/dL (8-22); CALCIUM 8.1 mg/dL (8.8-10.2); CHLORIDE 98 mmol/L (98-107); COSMO 281; CREATININE 0.7 mg/dL (0.7-1.2); ESTIMATED GFR > 60; GLUCOSE 150 mg/dL (70-104); GOT 12 U/L (10-34); GPT 11 U/L (10-44); POTASSIUM 4.1 mmol/L (3.5-5.1); SODIUM 138 mmol/L (136-145); TCO2 29 mmol/L (25-35); TOTAL BILIRUBIN 0.26 mg/dL (0.20-1.00); TOTAL PROTEIN 6.6 g/dL (6.3-8.3)
[2018-12-30] MEDS: ZOLOFT PO SCH (08:35)
[2018-12-30] MEDS: VITAMIN C PO SCH (08:35)
[2018-12-30] MEDS: ASPIRIN PO SCH (08:35)
[2018-12-30] MEDS: HEPARIN SUBQ SCH ×2 (08:35→20:39)
[2018-12-30] MEDS: VITAMIN B-12 PO SCH (08:35)
[2018-12-30] MEDS: LOPRESSOR PO SCH ×2 (08:35→20:39)
[2018-12-30] MEDS: PRILOSEC PO SCH (08:35)
[2018-12-30] MEDS ORDERED: GAVISCON LIQUID PO PRN (14:09)
[2018-12-30] MEDS: ATIVAN PO PRN ×2 (15:16→21:56)
[2018-12-30] MEDS: NORCO-5 PO PRN ×2 (15:16→21:56)
--- NOTE | 2018-12-30 15:24 | Diag Imaging Result Doc PS360 ---
EXAM: KUB ABDOMEN 12/30/2018 HISTORY: abdominal distention TECHNIQUE: KUB COMMENT: There is sclerosis throughout the thoracic spine with some facet degenerative disc changes particularly at the L4-5 level. There is no evidence of organomegaly or mass. There is some colonic gas. No small bowel dilatation is present in the stomach does not appear to be distended in the portion included on the study. There is gas in the rectum. IMPRESSION: Nonspecific abdomen. Electronically signed by Champ Rivers 12/30/2018 3:22 PM
--- NOTE | 2018-12-30 15:32 | Diag Imaging Result Doc PS360 ---
EXAM: CHEST-1 VIEW 12/30/2018 HISTORY: pneumonia TECHNIQUE: AP portable upright at 1458 COMMENT: The inspiration is suboptimal. There is ill-defined opacity over the left base and to a lesser extent on the right side. There has been slight improvement since the previous examination of 12/28/2018. IMPRESSION: Slightly improved bibasilar atelectasis versus pneumonia. Electronically signed by Champ Rivers 12/30/2018 3:29 PM
[2018-12-30] MEDS: ALBUTEROL NEB INH PRN (19:41)
[2018-12-30] MEDS: CEFTIN PO SCH (20:38)
--- NOTE | 2018-12-30 21:38 | PULMONOLOGY CONSULTATION ---
DATE: 12/30/2018 REQUESTING PHYSICIAN: Dr. Agus Gonzales. CLINICAL HISTORY: Mr. Diallo an 87-year-old white male with metastatic prostate cancer with extensive disease in the bone with multiple thoracic vertebral body involvement, who was admitted to the hospital from 11/26/2018 until 11/30/2018 with syncope and pneumonia. The patient did improve and was transferred to the rehab facility. He stayed there for 21 days and returned home only briefly, and he returned to the hospital 12/26/2018 with atrial fibrillation and bilateral pneumonia. The pattern of the pneumonia is most consistent with a significant aspiration event. The patient has marginally improved during this hospital stay. End-of-life discussions have been held by Dr. Gonzales with the family. PAST MEDICAL HISTORY/PROBLEM LIST: 1. Metastatic prostate cancer with extensive bony involvement as per above. 2. Failed outpatient rehab with recurrent admission to the hospital this year as outlined above. 3. Atrial fibrillation with return to sinus rhythm. 4. Gastroesophageal reflux disease. 5. Prior tobacco history. 6. Dyslipidemia. 7. Diabetes mellitus. 8. Osteoarthritis. SOCIAL HISTORY: Prior tobacco use. The patient is a retired TV repairman. FAMILY HISTORY: Positive for lung cancer, breast cancer. REVIEW OF SYSTEMS: Notable for periods of dyspnea, cough, generalized weakness. PHYSICAL EXAMINATION: General: Reveals a chronically ill-appearing male who is awake, alert, and appears oriented. Vital signs: He has been afebrile for the last 24 hours. Blood pressure 165/90, heart rate 93, respiratory rate 27, oxygen saturation 97% on 2 L per nasal cannula. HEENT: Pupils are equal and reactive. Oropharynx is clear. Neck: Supple. Chest: Reveals crackles in both lung bases with bilateral rhonchi that do not clear with cough. Cardiac: S1, S2. Abdomen: Soft. Extremities: Reveal trace edema. LABORATORIES: KUB reveals nonspecific abdominal air gas pattern. Chest x-ray reveals slight decrease in bibasilar infiltrates. White blood count 9.4, hemoglobin 11.0, platelet count 479,000. Sodium 138, potassium 4.1, chloride 98, bicarbonate 29, BUN 20, creatinine 0.7. IMPRESSION: An 88-year-old with aspiration pneumonia, gastroesophageal reflux, and metastatic prostate cancer, with recurrent admission to the hospital along with progressive decline in his overall performance status. By family's report, the patient does not want to participate in additional rehabilitation. The patient's overall prognosis is guarded to poor, given his recent history. He does meet the criteria for hospice admission. The family is concerned about his pneumonia and his shortness of breath. I explained that from a new pneumonia standpoint that this is likely an aspiration event and that it is a chemical process, but we do typically treat with antibiotics. His chest x-ray is showing some improvement, and he could be transitioned to oral antibiotics whether he is discharged to hospice or not. At least short term, his prognosis is related to his aspiration and if he is prone to aspiration again. The patient does have occasional choking with food, but I suspect that he has nocturnal reflux symptoms that lead to his aspiration events. He does eat his largest meal in the evening, and it was recommended that he eat a small meal at supper. If the patient does develop air hunger, I explained to the son that the typical treatment would be morphine which helps resolve air hunger. The patient's son will think about options tonight and decide if he would like his father transferred to hospice tomorrow or to transition over the next few days to home with home health care. cc: MD Agus Ortez MD
[2018-12-31] MEDS: HEPARIN SUBQ SCH ×2 (08:14→20:30)
[2018-12-31] MEDS: ZOLOFT PO SCH (08:14)
[2018-12-31] MEDS: VITAMIN C PO SCH (08:15)
[2018-12-31] MEDS: ASPIRIN PO SCH (08:15)
[2018-12-31] MEDS: LOPRESSOR PO SCH ×2 (08:15→20:30)
[2018-12-31] MEDS: PRILOSEC PO SCH (08:15)
[2018-12-31] MEDS: VITAMIN B-12 PO SCH (08:15)
[2018-12-31] MEDS: CEFTIN PO SCH ×2 (08:15→20:30)
[2018-12-31] MEDS ORDERED: NORVASC PO SCH (09:00)
[2018-12-31] MEDS ORDERED: NORCO-5 PO PRN (09:14)
[2018-12-31] MEDS: ATIVAN PO PRN ×2 (10:23→17:55)
[2018-12-31] MEDS: ROXANOL CONC. LIQUID PO PRN ×2 (12:31→20:30)
--- NOTE | 2018-12-31 12:42 | PULMONOLOGY PROGRESS NOTE ---
DATE: 12/31/2018 SUBJECTIVE: The patient is in bed. He appears comfortable. He does occasionally report air hunger. OBJECTIVE: Vital Signs: The patient has been afebrile over the last 24 hours, blood pressure 158/96, heart rate 85, respiratory rate 16, oxygen saturation 100%. HEENT: Pupils are equal. Oropharynx appears slightly dry. Neck: Supple. Chest: Reveals good air entry bilaterally. He has less rhonchi than on last evening's exam. Cardiac: Distant heart sounds. Normal S1, normal S2. Abdomen: Soft. Extremities: Without significant edema. IMPRESSION: An 88-year-old with: 1. Metastatic prostate cancer with extensive thoracic spine involvement. 2. Aspiration pneumonia. 3. Acute hypoxemic respiratory failure. 4. Gastroesophageal reflux disease. 5. Declining performance status. PLAN: 1. Continue antibiotics. 2. Continue comfort measures. 3. Agree with oral antibiotics as transitioned by Dr. Gonzales. 4. Anticipate transitioning to hospice over the next 24 to 48 hours. The son was at the bedside, and we discussed various issues, including antibiotics, Tabor catheter, et cetera. cc: MD Agus Ortez MD
[2019-01-01 04:28] VITALS: BP 124/71
--- NOTE | 2019-01-01 08:47 | DISCHARGE SUMMARY ---
ADMISSION DATE: 12/26/2018 DISCHARGE DATE: 01/01/2019 FINAL DIAGNOSES: 1. 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 2. Recurrent aspiration pneumonia. 3. Chronic atrial fibrillation. PRESENT ILLNESS: Mr. Diallo is an 88-year-old gentleman with a history of metastatic prostate cancer and pneumonia. He presented to the emergency room on the day of admission with complaints of shortness of breath and cough. He also was noted to be in atrial fibrillation with rapid ventricular response. At least one EKG documented atrial flutter with variable conduction. Physical examination revealed an alert, cooperative, elderly gentleman. Pulse of 132, respirations 22. Chest exam revealed some bibasilar crackles. Abdomen was soft with active bowel sounds. White blood count 14,000. Sodium 132, BUN 15, creatinine 0.9, glucose 212. D- dimer was slightly elevated. In the emergency room, he underwent pulmonary artery CT angiogram which showed no evidence of pulmonary emboli. It did document left lower lobe pneumonia and smaller infiltrate in the posterior lingula. There was also probable pulmonary edema. BRIEF HOSPITAL COURSE: He was admitted to CICU and treated with a Cardizem drip to control his heart rate. Fairly quickly he converted back to sinus rhythm. He was seen in consultation by Dr. Baldemar Anderson, Cardiology who recommended metoprolol as a maintenance drug. Due to his age and frailty, anticoagulation was not recommended. He was treated with intravenous antibiotics per protocol and seemed to improve slightly. Even after improvement, he continued to have episodic shortness of breath. Chest x-ray showed no significant change with some resolution of his pulmonary edema with a normal heart rate. Plans were made for discharge. After a lengthy end of life discussion, he and his , son and daughter all agreed with going home with [facility] to manage his care. He attempted some physical therapy here but was barely able to stand and not able to walk and after several days, he felt this was futile and requested no further therapy. He was planned to return home today under [facility] care, but around 6:45 a.m. was found pulseless and apneic and pronounced . cc: Agus Gonzales MD MTDD
== END 2019-01-01 06:45 | disposition expired | DRG 177 ==
LOC: SUPCPDRO → ED 17:43 → 3S 12-26 07:03 → SUATTDRO 12-26 07:03 → 3S 12-28 09:27
PROVIDERS: ADMIT Internal Medicine; ATTEND Internal Medicine
CPT/HCPCS: 71010; 71045; 71275; 74000; 74018; 80048; 80053; 81001; 82550; 82553; 82948; 83605; 83735; 83880; 84484; 85025; 85379; 85610; 85730; 87040; 87275; 87276; 87804; 93005; 93010; 94640; 94761; 96365; 96367; 96368; 96375; 97110; 97163; 99285; A9270; J0456; J0696; J1644; J1940; J7040; J7506; J7512; Q9967; XXXXX